=== PATIENT | male | born 1955 ===

== ENCOUNTER 2024-09-29 09:25 | Outpatient (AMB) | payer MEDICARE, MEDICAID, SELFPAY ==
--- NOTE | 2024-09-29 09:35 | A.OFFVIS_ITS ---
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 The patient describes his pain as sharp in nature. Most of the pain is along the medial aspect of his knee. The patient's symptoms have gotten worse over the last year. He has failed the last 6 weeks of conservative treatment which have included Tylenol, anti-inflammatory medicines, a home exercise program and physical therapy exercises. Supervisor [employer] Required: Yes Supervisor [employer] Name: [id number]- Dewayne Long Allergies No Known Allergies Allergy (Verified 09/29/24 09:42) Medication List - Last Reconciled 09/29/24 by Kayden Billy MD acetaminophen ER 650 mg PO alcohol swabs (Alcohol Prep Pads) pad topical QID atorvastatin 40 mg PO QAM blood sugar diagnostic (FreeStyle Lite Strips) As directed lancets (TRUEplus Lancets) As directed lisinopril 5 mg PO QAM Physical Exam Const Other: Well-nourished well-developed very friendly male awake alert and oriented x3 in no acute distress Extrem Other: Bilateral lower extremity examination shows good capillary refill, no skin lesions noted, normal sensation light touch Left knee examination shows a minimal effusion, mild crepitus with range of cruzito on, tenderness along his medial joint line, positive Johann's test, no instability Results Reviewed Results Reviewed: Standing full weight-bearing x-rays of the patient's left knee shows mild diffuse joint space narrowing, no acute bony abnormalities Assessment & Plan Assessment & Plan (1) Tear of medial meniscus of left knee: Code(s): S83.242A - Other tear of medial meniscus, current injury, left knee, initial en counter Category: Medical Plan Mr. Wilkinson presents with progressively worsening left knee pain and mechanical symptoms most likely due to a medial meniscus tear. Thus, I will send the patient for an MRI of his left knee for further evaluation. I will see him back once the MRI is completed to discuss the findings and treatment options. Feel free to call me at any time should questions regarding his orthopedic management arise. Thank you very much for asking me to see this very friendly gentleman. I spent 22 minutes in reviewing the patient's records and imaging studies, seeing the patient and documenting in the medical record. Orders: Orders XR knee LT 3V Today M25.562 - Pain in left knee MR knee LT wo con 09/30/24 S83.242A - Other tear of medial meniscus, current injury, left knee, initial encounter Coding Level of Care Code New Pt Level 3 (98659) Complex EM visit Add On G2211 Diagnoses Tear of medial meniscus of left knee S83.242A
--- OUTSIDE RECORDS SUMMARY | 2024-09-29 09:57 | XMS_ITS | Referral Summary ---
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 In Vitro USE 1 STRIP TWICE A DAY DX CODE E11.9 100 strip 3 8 Active FREESTYLE LITE METER meterIndications:Ot her specified diabetes mellitus without complication, without long-term current use of insulin (HCC) Use meter to check sugar BID Dx code E11.9 1 each 8 Active methylPREDNISolone (MEDROL) 4 mg tablet Take 1 tablet (4 mg total) by mouth once a day. 21 tablet 3 Active lisinopriL (PRINIVIL,ZESTRIL) 2.5 mg tabletIndications:H ypertension, unspecified type TAKE 1 TABLET BY MOUTH EVERY DAY 90 tablet 3 3 Active atorvastatin (LIPITOR) 40 mg tabletIndications:H yperlipidemia, unspecified hyperlipidemia type Take 1 tablet (40 mg total) by mouth once a day. 90 tablet 3 3 Active mirtazapine (REMERON) 30 mg tabletIndications:D epression, unspecified depression type Take 1 tablet bid 180 tablet 3 3 Active metFORMIN (GLUCOPHAGE) 500 mg tabletIndications:P olyarthritis Take 1 tablet (500 mg total) by mouth once a day. 90 tablet 1 3 Active Active Problems Problem Noted Date Diagnosed Date Hyperplastic polyp of intestine 01/02/2018 Overview (01/02/2018): Added automatically from request for surgery [id number] Type 2 diabetes mellitus wit hout complication, without long-term current use of insulin 09/19/2017 Male erectile disorder 04/08/2011 Hyperlipidemia 04/08/2011 Resolved Problems Problem Noted Date Diagnosed Date Resolved Date Acute pain of both shoulders 12/29/2017 09/24/2018 Anal polyp 10/10/2017 09/24/2018 Overview (10/10/2017): Added automatically from request for surgery [id number] Fatigue 11/27/2016 09/19/2017 Derangement of medial meniscus 12/22/2015 03/21/2017 Pain in knee 12/12/2015 03/21/2017 Sciatica 12/06/2015 03/21/2017 Diabetes mellitus 12/14/2014 09/19/2017 Nonspecific abnormal finding 06/09/2013 09/19/2017 Immunizations Immunization Administration Dates Next Due Influenza, Injectable, Quadr ivalent, Contains Preservative 12/23/2017 Pneumococcal Polysaccharide Vaccine, 23 Valent 0 06/03/2013 Tetanus Toxoid, Reduced Diph theria Toxoid, and Acellular Pertussis Vaccine, Adsorbed 06/03/2013 Social History Tobacco Use Types Packs/Day Years Used Date Smoking Tobacco: Some Days Cigarettes Smokeless Tobacco: Never Tobacco Cessation:Ready to Q uit: Yes; Counseling Given: Yes Comments:would be interested in using the patch Alcohol Use Standard Drinks/Week Comments No 0 (1 standard drink = 0.6 oz pur e alcohol) Transportation Answer Date Recorded Please alban the areas for ich the patient would like information or assistance: None Apply 11/14/2022 Lack of Transportation (Medical) Not on file 11/14/2022 Housing Stability Answer Date Recorded Please alban the areas for ich the patient would like information or assistance: None Apply 11/14/2022 Unable to Pay for Housing in the Last Year Not o n file 11/14/2022 Last EPDS Total Score Not on file 11/14/2022 Unstable Housing in the Last Year Not on file 11/14/2022 Sex and Gender Information Value Date Recorded Sex Assigned at Not on file Legal Sex Male 1:24 AM EDT Gender Identity Not on file Sexual Orientation Not on file Occupation Industry Job Start Date Job End Date not working Not on file Not on file Not on file Last Filed Vital Signs Vital Sign Reading Time Taken Comments Blood Pressure 110/70 11/14/2022 11:51 AM EDT Pulse 78 11/14/2022 11:51 AM EDT Temperature 36.8 C (98.3 F) 11/14/2022 11:51 AM EDT Respiratory Rate 14 04/08/2018 2:01 PM EST Oxygen Saturation 97% 04/08/2018 2:01 PM EST Inhaled Oxygen Concentration - - Weight 57.6 kg (127 lb) 11/14/2022 11:51 AM EDT Height 156 cm (5' 1.42 ) 01/26/2019 8:54 AM EST Body Mass Index 23.67 01/26/2019 8:54 AM EST Plan of Treatment Not on file Procedures * Due to [place] [employer] law, this organization might not be sharing negative HIV tests. Procedure Name Priority Date/Time Associated Diagnosis Comments HEMOGLOBIN A1C Routine 11/14/2022 12:15 PM EDT Diabetes mellitus without complication BASIC METABOLIC PANEL Routine 02/29/2020 9:14 AM EST Combined hyperlipidemia COLONOSCOPY 04/08/2018 MICROALBUMIN, RANDOM URINE WITH CREATININE Routine 06/20/2017 12:00 AM EDT Type 2 diabetes mellitus without complication, without long-term current use of insulin HM DIABETES EYE EXAM Routine 06/05/2016 8:06 AM EDT from Last 3 Months or Most Recently Relevant to Health Maintenance Results * Due to [place] [employer] law, this organization might not be sharing negative HIV tests. * (ABNORMAL) Hemoglobin A1c (11/14/2022 12:15 PM EDT) Hemoglobin A1C 10.4(H) <5.7 % of total Hgb 11/14/2022 8:16 PM EDT [facility] Comment: For someone without known diabetes, a hemoglobin A1c value of 6.5% or greater indicates that they may have diabetes and this should be confirmed with a follow-up test. For someone with known diabetes, a value <7% indicates that their diabetes is well controlled and a value greater than or equal to 7% indicates suboptimal control. A1c targets should be individualized based on duration of diabetes, age, comorbid conditions, and other considerations. Currently, no consensus exists regarding use of hemoglobin A1c for diagnosis of diabetes for children. eAG (MG/DL) 252 mg/dL 11/14/2022 8:16 PM EDT [facility] eAG (MMOL/L) 13.9 mmol/L 11/14/2022 8:16 PM EDT [facility] Blood Structure of peripheral vein / Unknown 11/14/2022 12:15 PM EDT 11/14/2022 6:29 PM EDT us Albino Hernandez MD LAB BLOOD ORDERABLES Final Resul t [facility] [address] [facility] [address], [place] [address], [employer] [facility] [address] [place] [address] * (ABNORMAL) Basic Metabolic Panel (02/29/2020 9:14 AM EST) Glucose 191(H) 65 - 99 mg/dL 02/29/2020 5:29 PM EST [facility] Comment: Fasting reference interval For someone without known diabetes, a glucose value >125 mg/dL indicates that they may have diabetes and this should be confirmed with a follow-up test. BUN 22 7 - 25 mg/dL 02/29/2020 5:29 PM EST [facility] Creatinine 0.93 0.70 - 1.25 mg/dL 02/29/2020 5:29 PM EST [facility] Comment: For patients >49 years of age, the reference limit for Creatinine is approximately 13% higher for people identified as -Irish. eGFR Non- 88 > OR = 60 mL/min/1 .73m2 02/29/2020 5:29 PM EST [facility] eGFR 102 > OR = 60 mL/min/1 .73m2 02/29/2020 5:29 PM EST [facility] Bun/Creatinine Ratio NOT APPLICABLE (calc) 02/29/2020 5:29 PM EST [facility] Sodium 139 135 - 146 mmol/L 02/29/2020 5:29 PM EST [facility] Potassium 4.4 3.5 - 5.3 mmol/L 02/29/2020 5:29 PM EST [facility] Chloride 101 98 - 110 mmol/L 02/29/2020 5:29 PM EST [facility] Carbon Dioxide 26 20 - 32 mmol/L 02/29/2020 5:29 PM EST [facility] Calcium 9.7 8.6 - 10.3 mg/dL 02/29/2020 5:29 PM EST [employer] [facility] Blood Structure of peripheral vein / Unknown 02/29/2020 9:14 AM EST 02/29/2020 4:14 PM EST Narrative [facility] - 02/29/2020 6:20 PM EST FASTING:YES Sandi Arias SKI PATROL DIRECTOR LAB BLOOD ORDERABLES Final Result [facility] [address] [facility] [address], [place] [address], [place] [phone] [facility] [address] [place] [address] * COLONOSCOPY (04/08/2018) Narrative Procedure Note Mayito Mccall MD - 04/08/2018 12:49 PM EST Gastroenterology Patient Name: Timo Wilkinson Procedure Date: 04/08/2018 12:49 PM Date of : 1955 Admit Type: Outpatient Age: 62 Room: Room 1 Gender: Male Note Status: Finalized Attending MD: Mayito Mccall MD Procedure: Colonoscopy Indications: High risk colon cancer surveillance: Personal history of colonicpolyps Providers: Mayito Mccall MD (Doctor) Referring MD: Halima Arias NP (Referring MD) Requesting Provider: Medicines: Monitored Anesthesia Care Complications: No immediate complications. Estimated Blood Loss: Estimated blood loss: none. Procedure: After I obtained informed consent, the scope was passed under direct vision. Throughout the procedure, the patient's blood pressure, pulse, and oxygen saturations were monitored continuously. The [id number] OLYMPUS [id number] was introduced through the anus and advanced to the cecum, identified by appendiceal orifice andileocecal valve. The colonoscopy was performed withoutdifficulty. The patient tolerated the procedure well. The qualityof the bowel preparation was fair. The bowel preparationused was [employer]te. Findings: The perianal and digital rectal examinations were normal. Multiple small and large-mouthed diverticula were found in the entire colon. A diminutive polyp was found in the cecum. The polyp was sessile. The polyp was removed with a cold biopsy forceps. Resection and retrieval were complete. Internal hemorrhoids were found during retroflexion. The hemorrhoids were medium-sized. Impression: - Preparation of the colon was fair. - Diverticulosis in the entire examined colon. - One diminutive polyp in the cecum, removed with acold biopsy forceps. Resected and retrieved. - Internal hemorrhoids. Recommendation: - Discharge patient to home (ambulatory). - Await pathology results. - A letter will be mailed to you with your pathology results. If you do not hear from us in 2 weeks, please call our office for results. - Repeat colonoscopy in 3 years because the bowel preparation was suboptimal and for surveillance. Mayito Mccall MD 04/08/2018 1:15:54 PM This report has been signed electronically. Number of Addenda: 0 Note Initiated On: 04/08/2018 12:49 PM Mayito Mccall MD [employer]OVATION PROCEDURES Final Result * Microalbumin/Creatinine Urine Ratio, Random (06/20/2017 12:00 AM EDT) Creatinine, Random Urine 234 20 - 370 mg/dL 06/24/2017 4:47 PM EDT [employer] [facility] Microalbumin 0.4 mg/dL 06/24/2017 4:47 PM EDT [employer] [facility] Comment: Reference Range Not established Microalbumin/Crea tinine Ratio, Random Urine 2 <30 mcg/mg creat 06/24/2017 4:47 PM EDT [employer] [facility] Comment: The ADA defines abnormalities in albumin excretion as follows: Category Result (mcg/mg creatinine) Normal <30 Microalbuminuria 30-299 Clinical albuminuria > OR = 300 The ADA recommends that at least two of three specimens collected within a 3-6 month period be abnormal before considering a patient to be within a diagnostic category. Urine specimen (specimen) Voided urine specimen / Unknown 06/20/2017 06/24/2017 8:21 AM EDT Sandi Arias SKI PATROL DIRECTOR LAB URINE ORDERABLES Final Result [facility] [address] [facility] [address], [place] [address], [place] [phone] [facility] [address] [facility] [address], [place] [address], [place] [phone] * DIABETES EYE EXAM (06/05/2016 8:06 AM EDT) Eye Exam [id number] [facility] MANUAL RESULTS 06/05/2016 8:06 AM EDT us Historical Conversion Provider HEALTH MAINTENANC E Final Result [facility] MANUAL RESULTS from Last 3 Months or Most Recently Relevant to Health Maintenance Insurance [facility]IC[facility] Care Teams Elastic Yarn Twister Helper Relationship Specialty Start Date End Date Albino Hernandez MD [address] [place] [id number] PCP - General Family Medicine 11/14/22
--- OUTSIDE RECORDS SUMMARY | 2024-09-29 09:57 | XMS_ITS | Clinical Summary ---
Author Organization [employer] Address [address] [facility] [address] [place] [address] Care Team Providers Care Board Lining Machine Operator Name Role Phone Mami Jacob AIMEE Primary Care Provider [phone] Allergies No known active allergies Medications atorvastatin (Lipitor) 40 MG tabletIndications :Hyperlipidemia, unspecified hyperlipidemia type Take 1 tablet (40 mg) by mouth Once per day. 90 tablet 2 12/17/19 24 Active Blood Pressure Monitoring (Blood Pressure Cuff) miscIndications:E levated blood pressure reading 1 kit if needed each day (blood pressure). 1 each 12/17/19 24 Active Blood Glucose Monitoring Suppl (FreeStyle [place] Lite) w/Device kitIndications:Ty pe 2 diabetes mellitus without complication, without long-term current use of insulin ([facility]) Use to test blood sugar bid dx dm 1 kit 12/17/19 24 Active glucose blood test stripIndications: Type 2 diabetes mellitus without complication, without long-term current use of insulin ([facility]) Use daily as needed for blood sugar, freestyle lite 100 each 1 12/19/19 24 025 Active nicotine (Nicoderm, Step 3) 7 MG/24HR patchIndications: Tobacco use disorder APPLY 1 PATCH TOPICALLY TO THE SKIN IN THE MORNING *DO NOT SMOKE WHILE USING PATCH* 30 patch 04/09/19 25 Active traZODone (Desyrel) 50 MG tablet Take 1 tablet (50 mg) by mouth at bedtime. 30 tablet 3 04/19/19 25 Active Alcohol Sheets (Alcoh-Wipe) sheetIndications: Type 2 diabetes mellitus without complication, without long-term current use of insulin ([facility]) Test daily before all meals/snacks and once before bedtime. 1 each 07/06/19 25 Active Lancets miscIndications:T ype 2 diabetes mellitus without complication, without long-term current use of insulin ([facility]) 1 Lancet if needed each day (as needed). 90 each 07/06/19 25 Active nicotine polacrilex (Commit) 2 MG lozenge Dissolve 1 lozenge (2 mg) in the mouth if needed for smoking cessation (every 1-2 hours). 100 lozenge 2 07/24/19 25 Active diclofenac sodium 3 % gelIndications:Ch ronic pain of left knee Apply topically if needed in the morning and at bedtime (knee pain). 100 g 1 08/24/19 25 Active lisinopril 2.5 MG tabletIndications :Primary hypertension Take 1 tablet (2.5 mg) by mouth Once per day. 30 tablet 11 08/24/19 25 026 Active metFORMIN XR (Glucophage-XR) 500 MG 24 hr tabletIndications :Type 2 diabetes mellitus with other specified complication, without long-term current use of insulin ([facility]) Take 1 tablet (500 mg) by mouth 2 times daily. Do not crush, chew, or split. 180 tablet 3 08/24/19 25 026 Active acetaminophen (Tylenol 8 Hour) 650 MG ER tabletIndications :Pain in left knee TAKE 1 TABLET BY MOUTH TWICE DAILY IN THE MORNING AND AT BEDTIME NEEDED FOR MILD PAIN. DO NOT BREAK, CRUSH, DISSOLVE OR CHEW. 60 tablet 2 09/16/19 25 Active acetaminophen (Tylenol 8 Hour) 650 MG ER tablet Take 650 mg by mouth if needed in the morning and at bedtime for mild pain. Do not crush, chew, or split. 025 Discontinued Active Problems Problem Noted Date Diagnosed Date Type 2 diabetes mellitus, wi thout long-term current use of insulin 07/19/2024 Assessment & Plan (07/19/2024 8:25 PM EDT): Difficulty managing chronic conditions in part due to low literacy Referral for med box Pharmacy team into schedule with patient Chronic left shoulder pain 07/19/2024 Assessment & Plan (07/19/2024 8:24 PM EDT): Referral to ortho, Pt 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 management for RAIL CAR MECHANIC and care coordination Other insomnia 04/19/2024 Assessment & Plan (04/19/2024 9:53 AM EST): Pt reports previously was on a nightly pill Trazodone rx sent Low-level of literacy 12/17/2023 Assessment & Plan (12/17/2023 1:29 PM EDT): RAIL CAR MECHANIC sheet given to patient, Referral to case management for ongoing support Primary hypertension 12/17/2023 Assessment & Plan (04/19/2024 9:53 AM EST): Above goal 2/3 visits Increase lisinopril to 5 mg Continue home monitoring goals reviewed Assessment & Plan (03/17/2024 12:10 PM EST): Lisinopril 2.5 mg Assessment & Plan (12/17/2023 1:27 PM EDT): Above goal today, resume lisinopril 2.5 Bp cuff ordered for home Bp measurement sheet, rtc in 2 months Tobacco use disorder 12/17/2023 Assessment & Plan (03/17/2024 12:09 PM EST): Pt motivated to quit, trial low dose patch Assessment & Plan (12/17/2023 1:29 PM EDT): Pt not motivated to quit, consents to low dose CT screening ordered Healthcare maintenance 12/17/2023 Chronic pain of left knee 12/17/2023 Assessment & Plan (07/19/2024 8:24 PM EDT): Referral to ortho Assessment & Plan (04/19/2024 9:54 AM EST): Prn acetaminophen prescribed, If ineffective referral to ortho Assessment & Plan (03/17/2024 12:09 PM EST): Rx for lidocaine patch which pt finds beneficial Assessment & Plan (12/17/2023 1:27 PM EDT): Will address at next visit declines physical therapy today and referral to ortho 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 09/21/2023 Mixed hyperlipidemia 09/21/2023 Hyperplastic polyp of intestine 01/02/2018 Overview (12/16/2023): Added automatically from request for surgery [id number] Type 2 diabetes mellitus wit hout complication, without long-term current use of insulin 09/19/2017 Assessment & Plan (04/19/2024 9:54 AM EST): Stable, now has home meter Assessment & Plan (03/17/2024 12:07 PM EST): Resume metformin which was likely the source of gi upset, pt plans to restart each med one by one and Return to clinic in 1 henrry Assessment & Plan (12/17/2023 1:30 PM EDT): Resume metformin 500 mg, Return to clinic in 2 months Home glucometer ordered Male erectile disorder (CODE) 04/08/2011 Hyperlipidemia 04/08/2011 Assessment & Plan (03/17/2024 12:10 PM EST): Resume statin Assessment & Plan (12/17/2023 1:29 PM EDT): Resume atorvastatin 40 mg Labs as ordered below Encounters Date Type Department Care Team Description 09/15/2024 Refill [facility] [address] [place] [address] Mami Jacob NP Pain in left knee 08/23/2024 Orders Only [facility] [address] [facility] [place] [address] Mami Jacob NP Type 2 diabetes mellitus with other specified complication, without long-term current use of insulin ([facility]) (Primary Dx); Primary hypertension; Chronic pain of left knee 08/19/2024 Travel 08/05/2024 9:30 AM EDT Clinical Support [facility] [place] [address] Davina Kaur PharmD Tobacco use disorder (Primary Dx) 07/23/2024 Refill [facility] [address] [place] [address] Davina Kaur PharmD 07/22/2024 Travel 07/19/2024 10:15 AM EDT Office [address] [facility] [address] [place] [address] Mmai Jacob NP Type 2 diabetes mellitus with other specified complication, without long-term current use of insulin (CMS/HCC) (Primary Dx); Chronic pain of left knee; Chronic left shoulder pain; Low-level of literacy 07/19/2024 Travel 07/16/2024 Telephone [facility] [address] [place] [id number] Amrit Cuevas MA chartprep 07/06/[address] [address] Mami Jacob NP Med Refill (Patient requesting refill for needles for glucose machine and lancets ) 07/06/[address] [address] Gaby Gallegos RN 07/02/[address] [address] Mami Jacob NP Type 2 diabetes mellitus without complication, without long-term current use of insulin (CMS/HCC) from Last 3 Months Immunizations Immunization Administration Dates Next Due Influenza injectable quadriv alent IIV4 with preservative 12/23/2017 Influenza, High Dose Seasonal, Preservative Free 12/17/2023 Pneumococcal Polysaccharide PPSV23 06/03/2013 Tdap 06/03/2013 Social History Tobacco Use Types Packs/Day Years Used Date Smoking Tobacco: Every Day Cigarettes Smokeless Tobacco: Never Tobacco Cessation:Counseling Given: Not Answered Alcohol Use Standard Drinks/Week Comments Never 0 (1 standard drink = 0.6 oz pur e alcohol) Depression Answer Date Recorded Patient Health Questionnaire-9 Score 0 12/17/2023 Patient Health Questionnaire-9 Score 0 12/17/2023 Last PHQ-9: Questionnaire Data Not on file 1 Housing Stability Answer Date Recorded What is your housing situation today? I do not have housing (Staying with others, in a hotel, in a senior living, living outside on the street, on a beach, in a car, or in a park 12/10/[address] you li ve. Do you have problems with any of the following? None of the above 12/10/2023 Food Insecurity Answer Date Recorded Within the past 12 months, y ou worried that your food would run out before you got money to buy more: Often true 12/10/2023 Within the past 12 months,th e food you bought just didn't last and you didn't have enough money to get more: Often true 04/2023 Transportation Answer Date Recorded In the past 12 months, has l ack of transportation kept you from medical appts, meetings, work or from getting things needed for daily living? Yes, it has kept me from medical appointments or getting medications. 12/10/2023 Utilities Answer Date Recorded In the past 12 months, has t he electric, gas, oil or water company threatened to shut off services in your home? No 12/10/2023 Depression Answer Date Recorded Patient Health Questionnaire-2 Score 0 12/17/2023 Internet Access Answer Date Recorded Internet Access Q1 Yes 12/10/2023 Internet Access Q2 Not on file 12/10/2023 Sex and Gender Information Value Date Recorded Sex Assigned at Male 08/25/2023 10:52 AM EDT Legal Sex Male 7:05 PM EDT Gender Identity Male 06/20/2023 7:05 PM EDT Sexual Orientation Straight 06/20/2023 7: 05 PM EDT Last Filed Vital Signs Vital Sign Reading Time Taken Comments Blood Pressure 104/66 08/19/2024 10:28 AM EDT Pulse 72 08/19/2024 10:28 AM EDT Temperature 36.6 C (97.8 F) 07/19/2024 10:24 AM EDT Respiratory Rate 18 07/19/2024 10:24 AM EDT Oxygen Saturation 97% 07/19/2024 10:24 AM EDT Inhaled Oxygen Concentration - - Weight 55.8 kg (123 lb) 07/19/2024 10:24 AM EDT Height 157.5 cm (5' 2 ) 07/19/2024 10:24 AM EDT Body Mass Index 22.5 07/19/2024 10:24 AM EDT Plan of Treatment Upcoming Encounters Date Type Department Care Team (Late st Contact Info) Description 10/19/2024 11:30 AM EDT Office Visit [facility] [address] [place] [address] Mami Jacob, CHARGING PLUG PLACER [address] [place] [address] 10/28/2024 9:45 AM EDT Office Visit [facility] [address] [place] [address] Ariane Garza, OD [address] [place] [address] Health Maintenance Due Date Last Done Comments CT Colonography 1957 Colonoscopy 1957 Colorectal Cancer Screening 1957 FIT DNA/Cologuard 1957 FIT 1957 FOBT 1957 Lipid Panel 1957 Sigmoidoscopy 1957 Diabetes: Foot Exam 10/25/1967 Hepatitis C Screening 10/25/1975 Zoster Vaccines (1 of 2) 10/25/2007 Pneumococcal Vaccine: 50+ Years (2 of 2 - PCV) 06/03/2014 06/03/2013 Diabetes: Urine Protein Screening 06/20/2018 06/20/2017 Eye Exam 12/17/2018 12/17/2016 DTaP/Tdap/Td Vaccines (2 - Td or Tdap) 06/04/2023 06/03/2013 COVID-19 Vaccine ( season) 2023 Diabetes: Hemoglobin A1C 10/19/2024 025, 03/17/2024, 12/17/2023 Influenza Vaccine (#1) 2024 4, 11/16/2022, 10/16/2019, Additional history exists SDOH Screening 12/09/2024 12/10/2023 Alcohol/Substance Use Screening 12/16/2024 12/17/2023 Depression Screening 12/16/2024 12/17/2023, 12/17/19 24 Tobacco Screening 04/19/2025 04/19/2024 RSV Patients and Patients Aged 60 years or older (1 - 1-dose 75+ series) 2032 HIB Vaccines Aged Out No longer eligi ble based on patient's age to complete this topic HPV Vaccines Aged Out No longer eligi ble based on patient's age to complete this topic Hepatitis A Vaccines Aged Out No long er eligible based on patient's age to complete this topic Hepatitis B Vaccines Aged Out No long er eligible based on patient's age to complete this topic IPV Vaccines Aged Out No longer eligi ble based on patient's age to complete this topic Meningococcal B Vaccine Aged Out No l onger eligible based on patient's age to complete this topic Meningococcal Vaccine Aged Out No ketty milana eligible based on patient's age to complete this topic RSV under 20 months Aged Out No longe r eligible based on patient's age to complete this topic Rotavirus Vaccines Aged Out No longer eligible based on patient's age to complete this topic Procedures Procedure Name Priority Date/Time Associated Diagnosis Comments POCT GLYCATED HEMOGLOBIN, TOTAL Routine 07/19/2024 10:27 AM EDT Type 2 diabetes mellitus with other specified complication, without long-term current use of insulin ([facility]) POCT GLUCOSE Routine 07/19/2024 10:26 AM EDT Type 2 diabetes mellitus with other specified complication, without long-term current use of insulin ([facility]) from Last 3 Months Results * (ABNORMAL) POCT HGB A1C (07/19/2024 10:27 AM EDT) Pathologist [facility] Hemoglobin A1C 7.8(A) 4.0 - 6.0 % QC Media Lot # [id number] Lot# Expiration Date Blood 07/19/2024 10:2 7 AM EDT Mami Jacob NP POINT OF CARE TEST ENTER/EDIT OR DERABLES Final Result * POCT Glucose (07/19/2024 10:26 AM EDT) Pathologist [facility] Glucose Blood, POC 145 60 - 200 mg/dL QC Media Lot # [id number] Lot# Expiration Date [id number] Blood Capillary blood specimen / Unknown 07/19/2024 10:26 AM EDT Result [facility] Mami Jacob CHARGING PLUG PLACER POINT OF CARE TEST ENTER/EDIT OR DERABLES Final Result from Last 3 Months Insurance [facility] STANDARD [place] [address] [place] [address] [place] [id number] Care Teams Board Lining Machine Operator Relationship Specialty Start Date End Date Mami Jacob NP [address] [place] [phone] PCP - General Family Medicine 12/17/23
== END 2024-09-29 09:59 | disposition home or self-care (01) ==
LOC: HO.HOS 09:25
PROVIDERS: Visit Provider Orthopaedic Surgery
DX: S83.242A Other tear of medial meniscus, current injury, left knee, initial encounter (principal)
CPT/HCPCS: 99203; G2211

== ENCOUNTER → 2024-09-29 09:27 | Outpatient (BNV) | payer MEDICARE, MEDICAID, SELFPAY | PROVIDERS: Visit Provider Radiology Diagnostic Radiology | DX: M25.562 Pain in left knee (principal) | CPT/HCPCS: 73562 ==

== ENCOUNTER 2024-09-29 10:25 | Outpatient (REF) | payer MEDICARE, MEDICAID, SELFPAY ==
--- OUTSIDE RECORDS SUMMARY | 2005-05-12 20:00 | XMS_ITS | Continuity of Care Document ---
Author Organization gisella [facility] Address [address] [address],[address] [place] [address] Phone Care Team Providers Care Coordinate Measuring Machine Programmer Name Role Phone Z-Converted, Provider Unavailable Unavailabl [...] Date Provider Providers Copied on Encounter gisella [facility], [address] [place] [address],[address], [id number], tel:[phone] Converted Locations No Information 6 Z-Convert ed Provider. . Antonino [facility], [address] [place] [address],[address] [address], [place], [place], [id number], tel:[phone] Converted Locations No Information 6 Z-Convert ed Provider. . [facility], [address] [place] [address],[facility] [address], [place], [place], [id number], tel:[phone] [facility] hypercholestero lemiaDysthymic disorder 6 Z-Convert ed Provider. . Family History Family Member Type Diagnosis Age At Onset No Information Payers Payer name Insurance type Covered democrat ID Authoriza tion(s) No Information Social History [...]
--- NOTE | ~2024-09-29 | XR_ITS ---
EXAMINATION: XR KNEE, LEFT CLINICAL INFORMATION: M25.562 - Pain in left knee COMPARISON: None available. TECHNIQUE: Three views of the left knee. FINDINGS: No fracture, dislocation, or suspicious bone lesion. Normal bone mineralization. Normal alignment. Joint spaces are preserved. No significant arthropathy. No significant joint effusion. Soft tissues appear normal. XR/XR knee LT 3V IMPRESSION: Normal left knee. Electronically signed by: Jeremiah Nick MD 09/29/2024 09:56 AM EDT
--- OUTSIDE RECORDS SUMMARY | 2024-09-30 11:18 | XMS_ITS | Referral Summary ---
Author Organization [facility] Address [address] [place] [address] Care Team Providers Care Machine Ii Engraver Name Role Phone Albino Hernandez MD Primary Care Provider [phone] Allergies No known active allergies Medications Freestyle [...] (01/02/2018): Added automatically from request for surgery [id number] Type 2 diabetes mellitus wit hout complication, without long-term current use of insulin 09/19/2017 Male erectile disorder 04/08/2011 Hyperlipidemia 04/08/2011 Resolved Problems Problem Noted Date Diagnosed Date Resolved Date Acute pain of both shoulders 12/29/2017 09/24/2018 Anal polyp 10/10/2017 09/24/2018 Overview (10/10/2017): Added automatically from request for surgery [id number] Fatigue 11/27/2016 09/19/2017 Derangement of medial meniscus [...] Not on file Procedures * Due to [place] [employer] law, this organization might not be sharing [...] to Health Maintenance Results * Due to [place] [employer] law, this organization might not be sharing negative HIV tests. * (ABNORMAL) Hemoglobin A1c (11/14/2022 12:15 PM EDT) Hemoglobin A1C 10.4(H) <5.7 % of total Hgb 11/14/2022 8:16 PM EDT [facility] Comment: For someone without known diabetes, a [...] (MG/DL) 252 mg/dL 11/14/2022 8:16 PM EDT [facility] eAG (MMOL/L) 13.9 mmol/L 11/14/2022 8:16 PM EDT [facility] Blood Structure of peripheral vein / Unknown 11/14/2022 12:15 PM EDT 11/14/2022 6:29 PM EDT us Albino Hernandez MD LAB BLOOD ORDERABLES Final Resul t [facility] [address] [facility] 3rd Floor, [place] [address], [employer] [facility] [address] [place] [address] * (ABNORMAL) Basic Metabolic Panel (02/29/2020 9:14 AM EST) Glucose 191(H) 65 - 99 mg/dL 02/29/2020 5:29 PM EST [facility] Comment: Fasting reference interval For someone without known diabetes, a glucose value >125 mg/dL indicates that they may have diabetes and this should be confirmed with a follow-up test. BUN 22 7 - 25 mg/dL 02/29/2020 5:29 PM EST [facility] Creatinine 0.93 0.70 - 1.25 mg/dL 02/29/2020 5:29 PM EST [facility] Comment: For patients >49 years of age, the reference limit for Creatinine is approximately 13% higher for people identified as -Liberian. eGFR Non- 88 > OR = 60 mL/min/1 .73m2 02/29/2020 5:29 PM EST [facility] eGFR 102 > OR = 60 mL/min/1 .73m2 02/29/2020 5:29 PM EST [facility] [employer] [facility] Bun/Creatinine Ratio NOT APPLICABLE (calc) 02/29/2020 5:29 PM EST [facility] Sodium 139 135 - 146 mmol/L 02/29/2020 5:29 PM EST [facility] Potassium 4.4 3.5 - 5.3 mmol/L 02/29/2020 5:29 PM EST [facility] [employer] [facility] Chloride 101 98 - 110 mmol/L 02/29/2020 5:29 PM EST [facility] [employer] [facility] Carbon Dioxide 26 20 - 32 mmol/L 02/29/2020 5:29 PM EST [facility] [employer] [facility] Calcium 9.7 8.6 - 10.3 mg/dL 02/29/2020 5:29 PM EST [employer] [facility] Blood Structure of peripheral vein / Unknown 02/29/2020 9:14 AM EST 02/29/2020 4:14 PM EST Narrative [facility] - 02/29/2020 6:20 PM EST FASTING:YES Sadni Arias [employer]VERTISING [employer] LAB BLOOD ORDERABLES Final Result [facility] [address] [facility] 3rd [address], [place] [address], [place] [phone] [facility] [address] [place] [address] * COLONOSCOPY (04/08/2018) Narrative Procedure Note Mayito [...] saturations were monitored continuously. The [id number] [id number] was introduced through the anus and advanced [...] - 370 mg/dL 06/24/2017 4:[address] [employer] [facility] Microalbumin 0.4 mg/dL 06/24/2017 4:47 [address] [employer] [facility] Comment: Reference Range Not established Microalbumin/Crea tinine Ratio, Random Urine 2 <30 mcg/mg creat 06/24/2017 4:47 [address] [employer] [facility] Comment: The ADA defines abnormalities in albumin [...] 06/20/2017 06/24/2017 8:21 AM EDT Sandi Arias [employer]VERT[employer] LAB URINE ORDERABLES Final Result [facility] [address] [facility] 3[address], [place] [address], [place] [phone] [facility] [address] [facility] 3[address], [place] [address], [place] [phone] * DIABETES EYE EXAM (06/05/2016 8:06 AM EDT) Eye Exam [id number] [facility] MANUAL RESULTS 06/05/2016 8:06 AM EDT us Historical Conversion Provider HEALTH MAINTENANC E Final Result [facility] MANUAL RESULTS from Last 3 Months or Most Recently Relevant to Health Maintenance Insurance MEDICARE [facility] Care Teams Machine Ii Engraver Relationship Specialty Start Date End Date Albino Hernandez MD [address] [place] [id number] PCP - General Family Medicine 11/14/22
--- OUTSIDE RECORDS SUMMARY | 2024-09-30 11:18 | XMS_ITS | Clinical Summary ---
Author Organization [employer] Address [address] [facility] [address] [place] [address] Care Team Providers Care Unattended Ground Sensor Specialist Name Role Phone Mami Jacob AIMEE Primary Care Provider [phone] Allergies No known active allergies Medications atorvastatin (Lipitor) 40 MG tabletIndications :Hyperlipidemia, unspecified hyperlipidemia type Take 1 tablet (40 mg) by mouth Once per day. 90 tablet 2 12/17/19 24 Active Blood Pressure Monitoring (Blood Pressure Cuff) miscIndications:E levated blood pressure reading 1 kit if needed each day (blood pressure). 1 each 12/17/19 24 Active Blood Glucose Monitoring Suppl (FreeStyle [place] Lite) w/Device kitIndications:Ty pe 2 diabetes mellitus without complication, without long-term current use of insulin ([facility]) Use to test blood sugar bid dx dm 1 kit 12/17/19 24 Active glucose blood test stripIndications: Type 2 diabetes mellitus without complication, without long-term current use of insulin ([facility]) Use daily as needed for blood sugar, [...] complication, without long-term current use of insulin ([facility]) Test daily before all meals/snacks and once before bedtime. 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 ASSEMBLER and care coordination Other insomnia 04/19/2024 Assessment & Plan (04/19/2024 9:53 AM EST): Pt reports previously was on a nightly pill Trazodone rx sent Low-level of literacy 12/17/2023 Assessment & Plan (12/17/2023 1:29 PM EDT): RAIL ASSEMBLER sheet given to patient, Referral to case [...] (12/16/2023): Added automatically from request for surgery [id number] Type 2 diabetes mellitus wit hout complication, [...] Type Department Care Team Description 09/15/2024 Refill [facility] [address] [place] [address] Mami Jacob NP Pain in left knee 08/23/2024 Orders Only [facility] [address] [facility] [place] [address] Mami Jacob NP Type 2 diabetes mellitus with other specified complication, without long-term current use of insulin ([facility]) (Primary Dx); Primary hypertension; Chronic pain of left knee 08/19/2024 Travel 08/05/2024 9:30 AM EDT Clinical Support [facility] [place] [address] Davina Kaur PharmD Tobacco use disorder (Primary Dx) 07/23/2024 Refill [facility] [address] [place] [address] Davina Kaur PharmD 07/22/2024 Travel 07/19/2024 10:15 AM EDT Office Visit [facility] [address] [place] [address] Mami Jacob NP Type 2 diabetes mellitus with other specified complication, without long-term current use of insulin (CMS/HCC) (Primary Dx); Chronic pain of left knee; Chronic left shoulder pain; Low-level of literacy 07/19/2024 Travel 07/16/2024 Telephone [facility] [address] [place] [phone] Amrit Cuevas MA chartprep 07/06/[address] [address] Mami Jacob NP Med Refill (Patient requesting refill for needles for glucose machine and lancets ) 07/06/[address] [address] Gaby Gallegos RN 07/02/[address] [address] Mami Jacob NP Type 2 diabetes mellitus [...] with others, in a hotel, in a half-way, living outside on the street, on a [...] Description 10/19/2024 11:30 AM EDT Office Visit [facility] [address] [place] [address] Mami Jacob, DIRECTORY CARRIER [address] [place] [address] 10/28/2024 9:45 AM EDT Office Visit [facility] [address] [place] [address] Ariane Garza, OD [address] [place] [address] Health Maintenance Due Date Last Done Comments [...] complication, without long-term current use of insulin ([facility]) POCT GLUCOSE Routine 07/19/2024 10:26 AM EDT Type 2 diabetes mellitus with other specified complication, without long-term current use of insulin ([facility]) from Last 3 Months Results * (ABNORMAL) POCT HGB A1C (07/19/2024 10:27 AM EDT) Pathologist [facility] Hemoglobin A1C 7.8(A) 4.0 - 6.0 % QC Media Lot # [id number] Lot# Expiration Date Blood 07/19/2024 10:2 7 AM EDT Mami Jacob NP POINT OF CARE TEST ENTER/EDIT OR DERABLES Final Result * POCT Glucose (07/19/2024 10:26 AM EDT) Pathologist [facility] Glucose Blood, POC 145 60 - 200 mg/dL QC Media Lot # [id number] Lot# Expiration Date [id number] Blood Capillary blood specimen / Unknown 07/19/2024 10:26 AM EDT Result [facility] Mami Jacob DIRECTORY CARRIER POINT OF CARE TEST ENTER/EDIT OR DERABLES Final Result from Last 3 Months Insurance [facility] STAND[facility] [place] [address] [place] [phone] Care Teams Unattended Ground Sensor Specialist Relationship Specialty Start Date End Date Mami Jacob NP [address] [place] [phone] PCP - General Family Medicine 12/17/23
== END 2024-09-29 10:26 | disposition home or self-care (01) ==
LOC: HO.HOSX 10:25
PROVIDERS: Visit Provider Orthopaedic Surgery
DX: S83.242A Other tear of medial meniscus, current injury, left knee, initial encounter (principal); M23.8X2 Other internal derangements of left knee; M25.862 Other specified joint disorders, left knee; M25.462 Effusion, left knee; M25.562 Pain in left knee; Z79.899 Other long term (current) drug therapy
CPT/HCPCS: 73562; 99202

== ENCOUNTER 2024-10-06 07:58 | Outpatient (AMB) | payer MEDICARE, MEDICAID, SELFPAY ==
--- OUTSIDE RECORDS SUMMARY | 2024-10-06 08:01 | XMS_ITS | Referral Summary ---
Author Organization [facility] Address [address] [place] [address] Care Team Providers Care Cadastral Surveyor Name Role Phone Albino Hernandez MD Primary Care Provider Allergies No known active allergies Medications Freestyle [...] (01/02/2018): Added automatically from request for surgery [id number] Type 2 diabetes mellitus wit hout complication, without long-term current use of insulin 09/19/2017 Male erectile disorder 04/08/2011 Hyperlipidemia 04/08/2011 Resolved Problems Problem Noted Date Diagnosed Date Resolved Date Acute pain of both shoulders 12/29/2017 09/24/2018 Anal polyp 10/10/2017 09/24/2018 Overview (10/10/2017): Added automatically from request for surgery [id number] Fatigue 11/27/2016 09/19/2017 Derangement of medial meniscus [...] Not on file Procedures * Due to [employer] law, this organization might not be sharing [...] to Health Maintenance Results * Due to [employer] law, this organization might not be sharing negative HIV tests. * (ABNORMAL) Hemoglobin A1c (11/14/2022 12:15 PM EDT) Hemoglobin A1C 10.4(H) <5.7 % of total Hgb 11/14/2022 8:16 PM EDT [facility] Comment: For someone without known diabetes, a [...] (MG/DL) 252 mg/dL 11/14/2022 8:16 PM EDT [facility] eAG (MMOL/L) 13.9 mmol/L 11/14/2022 8:16 PM EDT [facility] Blood Structure of peripheral vein / Unknown 11/14/2022 12:15 PM EDT 11/14/2022 6:29 PM EDT us Albino Hernanedz MD LAB BLOOD ORDERABLES Final Resul t [facility] [address] [facility] 3rd [address], [place] [address], [employer] [facility] [address] [place] [address] * (ABNORMAL) Basic Metabolic Panel (02/29/2020 9:14 AM EST) Glucose 191(H) 65 - 99 mg/dL 02/29/2020 5:29 PM EST [facility] Comment: Fasting reference interval For someone without known diabetes, a glucose value >125 mg/dL indicates that they may have diabetes and this should be confirmed with a follow-up test. BUN 22 7 - 25 mg/dL 02/29/2020 5:29 PM EST [facility] Creatinine 0.93 0.70 - 1.25 mg/dL 02/29/2020 5:29 PM EST [facility] Comment: For patients >49 years of age, the reference limit for Creatinine is approximately 13% higher for people identified as -[place]. eGFR Non- 88 > OR = 60 mL/min/1 .73m2 02/29/2020 5:29 PM EST [facility] eGFR 102 > OR = 60 mL/min/1 .73m2 02/29/2020 5:29 PM EST [facility] Bun/Creatinine Ratio NOT APPLICABLE (calc) 02/29/2020 5:29 PM EST [facility] Sodium 139 135 - 146 mmol/L 02/29/2020 5:29 PM EST [facility] Potassium 4.4 3.5 - 5.3 mmol/L 02/29/2020 5:29 PM EST [facility] Chloride 101 98 - 110 mmol/L 02/29/2020 5:29 PM EST [facility] Carbon Dioxide 26 20 - 32 mmol/L 02/29/2020 5:29 PM EST [facility] Calcium 9.7 8.6 - 10.3 mg/dL 02/29/2020 5:29 PM EST [facility] Blood Structure of peripheral vein / Unknown 02/29/2020 9:14 AM EST 02/29/2020 4:14 PM EST Narrative [facility] - 02/29/2020 6:20 PM EST FASTING:YES Sandi Arias GROCERY DEPARTMENT MANAGER LAB BLOOD ORDERABLES Final Result [facility] [address] [facility] [address], [place] [address], [place] [phone] [facility] [address] [place] [address] * COLONOSCOPY (04/08/2018) Narrative Procedure Note Mayito [...] saturations were monitored continuously. The PCF-H190DL OLYMPUS [id number] was introduced through the anus and advanced [...] - 370 mg/dL 06/24/2017 4:47 PM EDT [employer] [facility] Microalbumin 0.4 mg/dL 06/24/2017 4:47 PM EDT [employer] [facility] Comment: Reference Range Not established Microalbumin/Crea tinine Ratio, Random Urine 2 <30 mcg/mg creat 06/24/2017 4:47 PM EDT [employer] [facility] Comment: The ADA defines abnormalities in albumin [...] 06/20/2017 06/24/2017 8:21 AM EDT Sandi Arias GROCERY DEPARTMENT MANAGER LAB URINE ORDERABLES Final Result [facility] [address] [facility] [address], [place] [address], [place] [phone] [facility] [address] [facility] [address], [place] [address], [place] [phone] * DIABETES EYE EXAM (06/05/2016 8:06 AM EDT) Eye Exam [id number] [facility] MANUAL RESULTS 06/05/2016 8:06 AM EDT us Historical Conversion Provider HEALTH MAINTENANC E Final Result [facility] MANUAL RESULTS from Last 3 Months or Most Recently Relevant to Health Maintenance Insurance MEDICARE [facility] Care Teams Cadastral Surveyor Relationship Specialty Start Date End Date Albino Hernandez MD [address] [place] [id number] PCP - General Family Medicine 11/14/22
--- NOTE | 2024-10-06 09:09 | A.OFFVIS_ITS ---
Intake Visit Reasons: New prob- Left shoulder pain Intake Note: Timo is a 68 year old left hand dominant male who presents with complaints of progressively worsening left shoulder pain and weakness. The patient states that he injured his shoulder 1 year ago when he fell off of a ladder and landed onto his left shoulder. He reports difficulty lifting his left hand above shoulder height. He has failed the last 6 weeks of conservative treatment which has included physical therapy exercises, a home exercise program, Tylenol and anti-inflammatory medicines. Neurological Surgery Teacher Required: Yes Neurological Surgery Teacher Services: Neurological Surgery Teacher Present Neurological Surgery Teacher Name: Basilio [id number] Allergies No Known Allergies Allergy (Verified 10/06/24 09:26) Medication List - Last Reconciled 10/06/24 by Kayden Billy MD acetaminophen ER 650 mg PO alcohol swabs (Alcohol Prep Pads) pad topical QID atorvastatin 40 mg PO QAM blood sugar diagnostic (FreeStyle Lite Strips) As directed blood-glucose meter (FreeStyle [place] Lite kit) As directed lancets ([employer] Lancets) As directed lisinopril 5 mg PO QAM metformin ER 500 mg PO QPM trazodone 50 mg PO BEDTIME Physical Exam Const Other: Well-nourished well-developed very friendly male awake alert and oriented x3 in no acute distress Extrem Other: Left shoulder examination shows decreased range of motion when compared to his right shoulder, 4+ out of 5 strength with supraspinatus testing, positive impingement signs, tenderness over his acromioclavicular joint, no instability Results Reviewed Results Reviewed: X-rays of the patient's left shoulder show severe acromioclavicular joint narrowing, a type 3 acromion, no acute bony abnormalities Assessment & Plan Assessment & Plan (1) Left shoulder pain: Code(s): M25.512 - Pain in left shoulder Category: Medical (2) Rotator cuff insufficiency of left shoulder: Code(s): M25.312 - Other instability, left shoulder Category: Medical Plan Mr. Wilkinson presents with left shoulder pain and weakness due to impingement syndrome and possible rotator cuff tearing. I did recommend that the patient get an MRI of his left shoulder for further evaluation. He wishes to think things over. If he chooses to get the MRI he will contact my office so that the order maybe placed. Otherwise he will continue with his range of motion exercises to prevent stiffness. I spent 21 minutes in reviewing the patient's records and imaging studies, seeing the patient and documenting in the medical record. Orders: Orders XR shoulder LT min 2V Today M25.512 - Pain in left shoulder Coding Level of Care Code Est Pt Level 3 (58366) Complex EM visit Add On G2211 Diagnoses Left shoulder pain M25.512 Rotator cuff insufficiency of left shoulder M25.312
== END 2024-10-06 09:43 | disposition home or self-care (01) ==
LOC: HO.HOS 07:59
PROVIDERS: Visit Provider Orthopaedic Surgery
DX: M25.512 Pain in left shoulder (principal); M25.312 Other instability, left shoulder
CPT/HCPCS: 99213; G2211

== ENCOUNTER 2024-10-06 08:03 | Outpatient (REF) | payer MEDICARE, MEDICAID, SELFPAY ==
--- OUTSIDE RECORDS SUMMARY | 2005-05-12 20:00 | XMS_ITS | Continuity of Care Document ---
Author Organization gisella [facility] Address [address] [address],[address] [place] [address] Phone Care Team Providers Care Business Services Representative Name Role Phone Z-Converted, Provider Unavailable Unavailabl [...] Date Provider Providers Copied on Encounter gisella [facility], [address] [place] [address],[address], [id number], tel:[phone] Converted Locations No Information 6 Z-Convert ed Provider. . Antonino [facility], [address] [place] [address],[address] [address], [place], [place], [id number], tel:[phone] Converted Locations No Information 6 Z-Convert ed Provider. . [facility], [address] [place] [address],[facility] [address], [place], [place], [id number], tel:[phone] [facility] hypercholestero lemiaDysthymic disorder 6 Z-Convert ed Provider. . Family History Family Member Type Diagnosis Age At Onset No Information Payers Payer name Insurance type Covered constitution party ID Authoriza tion(s) No Information Social [...]
--- NOTE | ~2024-10-06 | XR_ITS ---
CLINICAL HISTORY: M25.512 - Pain in left shoulder 2 view left shoulder Comparison: None provided Findings: No fractures or dislocations. Mild degenerative change of the acromioclavicular and glenohumeral joints. No erosions. No radiopaque foreign body. IMPRESSION: 1. No acute findings. Mild degenerative changes. This document has been electronically signed by: Jerry Cardoso MD on 10/07/2024 10:35:42
--- OUTSIDE RECORDS SUMMARY | 2024-10-07 08:08 | XMS_ITS | Referral Summary ---
Author Organization [facility] Address [address] [place] [address] Care Team Providers Care Loader [employer]alt [employer] Name Role Phone Albino Hernandez MD Primary Care Provider [phone] Allergies No known active allergies Medications Freestyle [...] (01/02/2018): Added automatically from request for surgery [id number] Type 2 diabetes mellitus wit hout complication, without long-term current use of insulin 09/19/2017 Male erectile disorder 04/08/2011 Hyperlipidemia 04/08/2011 Resolved Problems Problem Noted Date Diagnosed Date Resolved Date Acute pain of both shoulders 12/29/2017 09/24/2018 Anal polyp 10/10/2017 09/24/2018 Overview (10/10/2017): Added automatically from request for surgery [id number] Fatigue 11/27/2016 09/19/2017 Derangement of medial meniscus [...] Not on file Procedures * Due to [employer] law, this organization might not be sharing [...] to Health Maintenance Results * Due to [employer] law, this organization might not be sharing negative HIV tests. * (ABNORMAL) Hemoglobin A1c (11/14/2022 12:15 PM EDT) Hemoglobin A1C 10.4(H) <5.7 % of total Hgb 11/14/2022 8:16 PM EDT [facility] Comment: For someone without known diabetes, a [...] (MG/DL) 252 mg/dL 11/14/2022 8:16 PM EDT [facility] eAG (MMOL/L) 13.9 mmol/L 11/14/2022 8:16 PM EDT [facility] Blood Structure of peripheral vein / Unknown 11/14/2022 12:15 PM EDT 11/14/2022 6:29 PM EDT us Albino Hernandez MD LAB BLOOD ORDERABLES Final Resul t [facility] [address] [facility] 3rd [address], [place] [address], [employer] [facility] [address] [place] [address] * (ABNORMAL) Basic Metabolic Panel (02/29/2020 9:14 AM EST) Glucose 191(H) 65 - 99 mg/dL 02/29/2020 5:29 PM EST [facility] Comment: Fasting reference interval For someone without known diabetes, a glucose value >125 mg/dL indicates that they may have diabetes and this should be confirmed with a follow-up test. BUN 22 7 - 25 mg/dL 02/29/2020 5:29 PM EST [facility] Creatinine 0.93 0.70 - 1.25 mg/dL 02/29/2020 5:29 PM EST [facility] Comment: For patients >49 years of age, the reference limit for Creatinine is approximately 13% higher for people identified as -Malaysian. eGFR Non- 88 > OR = 60 mL/min/1 .73m2 02/29/2020 5:29 PM EST [facility] eGFR 102 > OR = 60 mL/min/1 .73m2 02/29/2020 5:29 PM EST [facility] [facility] Bun/Creatinine Ratio NOT APPLICABLE (calc) 02/29/2020 5:29 PM EST [facility] Sodium 139 135 - 146 mmol/L 02/29/2020 5:29 PM EST [facility] Potassium 4.4 3.5 - 5.3 mmol/L 02/29/2020 5:29 PM EST [facility] [facility] Chloride 101 98 - 110 mmol/L 02/29/2020 5:29 PM EST [facility] [facility] Carbon Dioxide 26 20 - 32 mmol/L 02/29/2020 5:29 PM EST [facility] [facility] Calcium 9.7 8.6 - 10.3 mg/dL 02/29/2020 5:29 PM EST [employer] [facility] Blood Structure of peripheral vein / Unknown 02/29/2020 9:14 AM EST 02/29/2020 4:14 PM EST Narrative [facility] - 02/29/2020 6:20 PM EST FASTING:YES Sandi Arias ANTIQUE REPAIRER LAB BLOOD ORDERABLES Final Result [facility] [address] [facility] [address]rd [address], [place] [address], [place] [phone] [facility] [address] [place] [address] * COLONOSCOPY (04/08/2018) Narrative Procedure Note Mayito [...] saturations were monitored continuously. The PCF-H190DL OLYMPUS [id number] was introduced through the anus and advanced [...] - 370 mg/dL 06/24/2017 4:47 PM EDT [employer] [facility] Microalbumin 0.4 mg/dL 06/24/2017 4:47 PM EDT [employer] [facility] Comment: Reference Range Not established Microalbumin/Crea tinine Ratio, Random Urine 2 <30 mcg/mg creat 06/24/2017 4:47 PM EDT [employer] [facility] Comment: The ADA defines [...] 06/20/2017 06/24/2017 8:21 AM EDT Sandi Arias ANTIQUE REPAIRER LAB URINE ORDERABLES Final Result [facility] [address] [facility] [address], [place] [address], [place] [phone] [facility] [address] [facility] [address], [place] [address], [place] [phone] * DIABETES EYE EXAM (06/05/2016 8:06 AM EDT) Eye Exam [id number] [facility] MANUAL RESULTS 06/05/2016 8:06 AM EDT us Historical Conversion Provider HEALTH MAINTENANC E Final Result [facility] MANUAL RESULTS from Last 3 Months or Most Recently Relevant to Health Maintenance Insurance MEDICARE [facility] Care Teams Loader [employer]alt [employer] Relationship Specialty Start Date End Date Albino Hernandez MD [address] [place] [id number] PCP - General Family Medicine 11/14/22
--- OUTSIDE RECORDS SUMMARY | 2024-10-07 08:08 | XMS_ITS | Clinical Summary ---
Author Organization [employer] Address [address] [place] [address] Care Team Providers Care Regulatory Law Specialist Name Role Phone Mami Jacob AIMEE Primary Care Provider [phone] Allergies No known active allergies Medications atorvastatin (Lipitor) 40 MG tabletIndications :Hyperlipidemia, unspecified hyperlipidemia type Take 1 tablet (40 mg) by mouth Once per day. 90 tablet 2 12/17/19 24 Active Blood Pressure Monitoring (Blood Pressure Cuff) miscIndications:E levated blood pressure reading 1 kit if needed each day (blood pressure). 1 each 12/17/19 24 Active Blood Glucose Monitoring Suppl (FreeStyle [place] Lite) w/Device kitIndications:Ty pe 2 diabetes mellitus without complication, without long-term current use of insulin ([facility]) Use to test blood sugar bid dx dm 1 kit 12/17/19 24 Active glucose blood test stripIndications: Type 2 diabetes mellitus without complication, without long-term current use of insulin ([facility]) Use daily as needed for [...] complication, without long-term current use of insulin ([facility]) Test daily before all meals/snacks and once before bedtime. 1 each 07/06/19 25 Active Lancets miscIndications:T ype 2 diabetes mellitus without complication, without long-term current use of insulin ([facility]) 1 Lancet if needed each [...] without long-term current use of insulin ([facility]) Take 1 tablet (500 mg) [...] ortho, Pt 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 management for SITE ACQUISITION SPECIALIST and care coordination Other insomnia 04/19/2024 Assessment & Plan (04/19/2024 9:53 AM EST): Pt reports previously was on a nightly pill Trazodone rx sent Low-level of literacy 12/17/2023 Assessment & Plan (12/17/2023 1:29 PM EDT): SITE ACQUISITION SPECIALIST sheet given to patient, Referral to case [...] (12/16/2023): Added automatically from request for surgery [id number] Type 2 diabetes mellitus wit hout complication, [...] Type Department Care Team Description 09/15/2024 Refill [facility] [address] [place] [address] Mami Jacob NP Pain in left knee 08/23/2024 Orders Only [facility] [address] [facility] [place] [address] Mami Jacob NP Type 2 diabetes mellitus with other specified complication, without long-term current use of insulin ([facility]) (Primary Dx); Primary hypertension; Chronic pain of left knee 08/19/2024 Travel 08/05/2024 9:30 AM EDT Clinical Support [facility] [place] [address] Davina Kaur PharmD Tobacco use disorder (Primary Dx) 07/23/2024 Refill [facility] [address] [place] [address] Davina Kaur PharmD 07/22/2024 Travel 07/19/2024 10:15 AM EDT Office Visit [facility] [address] [facility] [place] [address] Mami Jacob NP Type 2 diabetes mellitus with other specified complication, without long-term current use of insulin ([facility]) (Primary Dx); Chronic pain of left knee; Chronic left shoulder pain; Low-level of literacy 07/19/2024 Travel 07/16/2024 Telephone [facility] [address] [place] [address] Amrit Cuevas MA chartprep from Last 3 Months Immunizations Immunization Administration [...] with others, in a hotel, in a skilled nursing, living outside on the street, on a [...] Description 10/19/2024 11:30 AM EDT Office Visit [facility] [address] [place], [place] [phone] Mami Jacob NP [address] [place], [place] [id number] 10/28/2024 9:45 AM EDT Office Visit [facility] [address] [place] [address] Ariane Garza, OD [address] [place] [address] Health Maintenance Due Date Last Done Comments [...] or Tdap) 06/04/2023 06/03/2013 COVID-19 Vaccine ( - season) 2023 Diabetes: Hemoglobin A1C 10/19/2024 025, [...] complication, without long-term current use of insulin ([facility]) POCT GLUCOSE Routine 07/19/2024 10:26 AM EDT Type 2 diabetes mellitus with other specified complication, without long-term current use of insulin ([facility]) from Last 3 Months Results * (ABNORMAL) POCT HGB A1C (07/19/2024 10:27 AM EDT) Hemoglobin A1C 7.8(A) 4.0 - 6.0 % QC Media Lot # [id number] Lot# Expiration Date 111,926 Blood 07/19/2024 10:2 7 AM EDT Mami Jacob NP POINT OF CARE TEST ENTER/EDIT OR DERABLES Final Result * POCT Glucose (07/19/2024 10:26 AM EDT) Glucose Blood, POC 145 60 - 200 mg/dL QC Media Lot # [id number] Lot# Expiration Date 100,725 Blood Capillary blood specimen / Unknown 07/19/2024 10:26 AM EDT Mami Jacob NP POINT OF CARE TEST ENTER/EDIT OR DERABLES Final Result from Last 3 Months Insurance [facility] STANDARD MEDICARE Care Teams Regulatory Law Specialist Relationship Specialty Start Date End Date Mami Jacob NP [address] [place] [phone] PCP - General Family Medicine 12/17/23
== END 2024-10-06 08:04 | disposition home or self-care (01) ==
LOC: HO.HOSX 08:03
PROVIDERS: Visit Provider Orthopaedic Surgery
DX: M25.512 Pain in left shoulder (principal); M25.812 Other specified joint disorders, left shoulder; Z79.899 Other long term (current) drug therapy
CPT/HCPCS: 73030; 99212

== ENCOUNTER → 2024-10-06 08:37 | Outpatient (BNV) | payer MEDICARE, MEDICAID, SELFPAY | PROVIDERS: Visit Provider Radiology Vascular & Interventional Radiology | DX: M25.512 Pain in left shoulder (principal) | CPT/HCPCS: 73030 ==

== ENCOUNTER 2024-10-18 11:22 | Outpatient (REF) | payer MEDICARE, MEDICAID, SELFPAY ==
--- NOTE | ~2024-10-18 | MR_ITS ---
EXAMINATION: MRI LEFT KNEE WITHOUT CONTRAST HISTORY: S83.242A - Other tear of medial meniscus, current injury, left knee COMPARISON: Patient is made to plain films of the left knee dated 09/29/2024. TECHNIQUE: Coronal T1 and fat-suppressed proton density, sagittal proton density and fat-suppressed proton density, and axial fat suppressed T2 weighted MR images of the left knee were obtained. FINDINGS: Bone marrow: Bone marrow signal intensity is normal. Joint effusion: There is no joint effusion. Candelaria's cyst: There is a tiny Candelaria's cyst. Articular cartilage: Intact Muscles/soft tissues: The visualized muscles demonstrate normal signal intensity. Anterior cruciate ligament: Intact Posterior cruciate ligament: Intact Medial collateral ligament: Intact Lateral collateral ligament: Intact Medial meniscus: There is a horizontally oriented linear focus of increased T2 signal intensity in the posterior horn of the medial meniscus. This contacts the inferior joint surface, consistent with a tear. The anterior horn is intact. Lateral meniscus: Intact Flexor mechanism: The popliteus, gastrocnemius, and hamstring tendons are intact. Quadriceps tendon: Intact Patellar tendon: Intact Patellar retinacula: Intact MR/MR knee LT wo con IMPRESSION: Horizontal tear of the posterior horn medial meniscus. Tiny Candelaria's cyst. Electronically signed by: Andrew Fuller MD 10/18/2024 01:38 PM EDT
--- OUTSIDE RECORDS SUMMARY | 2024-10-18 12:02 | XMS_ITS | Clinical Summary ---
Author Organization [employer] Address [address] [place] [address] Care Team Providers Care Artisan Plasterer Name Role Phone Mami Jacob AIMEE Primary Care Provider [phone] Allergies No known active allergies Medications atorvastatin (Lipitor) 40 MG tabletIndications :Hyperlipidemia, unspecified hyperlipidemia type Take 1 tablet (40 mg) by mouth Once per day. 90 tablet 2 12/17/19 24 Active Blood Pressure Monitoring (Blood Pressure Cuff) miscIndications:E levated blood pressure reading 1 kit if needed each day (blood pressure). 1 each 12/17/19 24 Active Blood Glucose Monitoring Suppl (FreeStyle [place] Lite) w/Device kitIndications:Ty pe 2 diabetes mellitus without complication, without long-term current use of insulin ([facility]) Use to test blood sugar bid dx dm 1 kit 12/17/19 24 Active nicotine (Nicoderm, Step 3) 7 MG/24HR patchIndications: Tobacco use disorder APPLY 1 PATCH TOPICALLY TO THE SKIN IN THE MORNING *DO NOT SMOKE WHILE USING PATCH* 30 patch 04/09/19 25 Active traZODone (Desyrel) 50 MG tablet Take 1 tablet (50 mg) by mouth at bedtime. 30 tablet 3 04/19/19 25 Active nicotine polacrilex (Commit) 2 MG [...] per day. 30 tablet 11 08/24/19 25 2025 Active metFORMIN XR (Glucophage-XR) 500 MG 24 hr tabletIndications :Type 2 diabetes mellitus with other specified complication, without long-term current use of insulin (CMS/HCC) Take 1 tablet (500 mg) by mouth 2 times daily. Do not crush, chew, or split. 180 tablet 3 08/24/19 25 2025 Active acetaminophen (Tylenol 8 Hour) 650 MG ER tabletIndications :Pain in left knee TAKE 1 TABLET BY MOUTH TWICE DAILY IN THE MORNING AND AT BEDTIME NEEDED FOR MILD PAIN. DO NOT BREAK, CRUSH, DISSOLVE OR CHEW. 60 tablet 2 09/16/19 25 Active Alcohol Sheets (Alcoh-Wipe) sheetIndications: Type 2 diabetes mellitus without complication, without long-term current use of insulin (CMS/HCC) Test daily before all meals/snacks and once before bedtime. 1 each 10/19/19 25 Active glucose blood test stripIndications: Type 2 diabetes mellitus without complication, without long-term current use of insulin (CMS/HCC) Use daily as needed for blood sugar, freestyle lite 100 each 1 10/19/19 25 2025 Active Lancets miscIndications:T ype 2 diabetes mellitus without complication, without long-term current use of insulin (CMS/HCC) 1 Lancet if needed each day (as needed). 90 each 10/19/19 25 Active glucose blood test stripIndications: Type 2 diabetes mellitus without complication, without long-term current use of insulin (CMS/HCC) Use daily as needed for blood sugar, freestyle lite 100 each 1 12/19/19 24 2024 Discontinued(R eorder (will not trigger notification to Pharmacy)) Alcohol Sheets (Alcoh-Wipe) sheetIndications: Type 2 diabetes mellitus without complication, without long-term current use of insulin (CMS/HCC) Test daily before all meals/snacks and once before bedtime. 1 each 07/06/19 25 2024 Discontinued(R eorder (will not trigger notification to Pharmacy)) Lancets miscIndications:T ype 2 diabetes mellitus without complication, without long-term current use of insulin (CMS/HCC) 1 Lancet if needed each day (as needed). 90 each 07/06/19 25 2024 Discontinued(R eorder (will not trigger notification to Pharmacy)) Active Problems Problem Noted Date Diagnosed Date [...] ortho, Pt 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 management for FOUNDATION STAGE TEACHER and care coordination Other insomnia 04/19/2024 Assessment & Plan (04/19/2024 9:53 AM EST): Pt reports previously was on a nightly pill Trazodone rx sent Low-level of literacy 12/17/2023 Assessment & Plan (12/17/2023 1:29 PM EDT): FOUNDATION STAGE TEACHER sheet given to patient, Referral to case [...] (12/16/2023): Added automatically from request for surgery [id number] Type 2 diabetes mellitus wit hout complication, [...] Encounters Date Type Department Care Team Description 10/18/2024 Refill [facility] NIR Azar [phone] Mami Jacob NP Type 2 diabetes mellitus without complication, without long-term current use of insulin ([facility]) 09/15/2024 Refill [facility] [place] [address] Mami Jacob NP Pain in left knee 08/23/2024 Orders Only [facility] [place] [address] Mami Jacob NP Type 2 diabetes mellitus with other specified complication, without long-term current use of insulin ([facility]) (Primary Dx); Primary hypertension; Chronic pain of left knee 08/19/2024 Travel 08/05/2024 9:30 AM EDT Clinical Support [facility] [place] [address] Davina Kaur PharmD Tobacco use disorder (Primary Dx) 07/23/2024 Refill [facility] [place] [address] Davina Kaur PharmD 07/22/2024 Travel 07/19/2024 10:15 AM EDT Office Visit [facility] [place] [address] Mami Jacob NP Type 2 diabetes mellitus with other specified complication, without long-term current use of insulin ([facility]) (Primary Dx); Chronic pain of left knee; Chronic left shoulder pain; Low-level of literacy 07/19/2024 Travel from Last 3 Months Immunizations Immunization Administration [...] others, in a hotel, in a senior care, living outside on the street, on a [...] Description 10/19/2024 11:30 AM EDT Office Visit [facility] [address] [place] [address] Mami Jacob, AIMEE [address] [place] [address] 10/28/2024 9:45 AM EDT Office Visit [facility] [address] [place] [address] Ariane Garza, OD [address] [place] [address] Health Maintenance Due Date Last Done Comments [...] complication, without long-term current use of insulin ([facility]) POCT GLUCOSE Routine 07/19/2024 10:26 AM EDT Type 2 diabetes mellitus with other specified complication, without long-term current use of insulin ([facility]) from Last 3 Months Results * (ABNORMAL) POCT HGB A1C (07/19/2024 10:27 AM EDT) Hemoglobin A1C 7.8(A) 4.0 - 6.0 % QC Media Lot # [id number] Lot# Expiration Date [id number] Blood 07/19/2024 10:2 7 AM EDT Mami Graef MAGNETIC RESONANCE TECHNOLOGIST POINT OF CARE TEST ENTER/EDIT OR DERABLES Final Result * POCT Glucose (07/19/2024 10:26 AM EDT) Glucose Blood, POC 145 60 - 200 mg/dL QC Media Lot # [id number] Lot# Expiration Date [id number] Blood Capillary blood specimen / Unknown 07/19/2024 10:26 AM EDT Result [facility] Mami Jacob MAGNETIC RESONANCE TECHNOLOGIST POINT OF CARE TEST ENTER/EDIT OR DERABLES Final Result from Last 3 Months Insurance [facility] STANDARD MEDICARE Care Teams Artisan Plasterer Relationship Specialty Start Date End Date Mami Jacob NP [address] [place] [phone] PCP - General Family Medicine 12/17/23
--- OUTSIDE RECORDS SUMMARY | 2024-10-18 12:02 | XMS_ITS | Referral Summary ---
Author Organization [facility] Address [address] [place] [address] Care Team Providers Care Purchase Analyst Name Role Phone Albino Hernandez MD Primary Care Provider [phone] Allergies No known active allergies Medications Freestyle [...] (01/02/2018): Added automatically from request for surgery [id number] Type 2 diabetes mellitus wit hout complication, without long-term current use of insulin 09/19/2017 Male erectile disorder 04/08/2011 Hyperlipidemia 04/08/2011 Resolved Problems Problem Noted Date Diagnosed Date Resolved Date Acute pain of both shoulders 12/29/2017 09/24/2018 Anal polyp 10/10/2017 09/24/2018 Overview (10/10/2017): Added automatically from request for surgery [id number] Fatigue 11/27/2016 09/19/2017 Derangement of medial meniscus [...] Not on file Procedures * Due to [place] [employer] law, this organization might not be sharing [...] to Health Maintenance Results * Due to [place] [employer] law, this organization might not be sharing negative HIV tests. * (ABNORMAL) Hemoglobin A1c (11/14/2022 12:15 PM EDT) Hemoglobin A1C 10.4(H) <5.7 % of total Hgb 11/14/2022 8:16 PM EDT [employer] Comment: For someone without known diabetes, a [...] (MG/DL) 252 mg/dL 11/14/2022 8:16 PM EDT [employer] eAG (MMOL/L) 13.9 mmol/L 11/14/2022 8:16 PM EDT [employer] Blood Structure of peripheral vein / Unknown 11/14/2022 12:15 PM EDT 11/14/2022 6:29 PM EDT us Albino Hernandez MD LAB BLOOD ORDERABLES Final Resul t [facility] [address], [place] [address], [facility] [employer] [facility] [address] [place] [address] * (ABNORMAL) Basic Metabolic Panel (02/29/2020 9:14 AM EST) Glucose 191(H) 65 - 99 mg/dL 02/29/2020 5:29 PM EST [employer] Comment: Fasting reference interval For someone without known diabetes, a glucose value >125 mg/dL indicates that they may have diabetes and this should be confirmed with a follow-up test. BUN 22 7 - 25 mg/dL 02/29/2020 5:29 PM EST [employer] Creatinine 0.93 0.70 - 1.25 mg/dL 02/29/2020 5:29 PM EST [employer] Comment: For patients >49 years of age, the reference limit for Creatinine is approximately 13% higher for people identified as -Croatian. eGFR Non- 88 > OR = 60 mL/min/1 .73m2 02/29/2020 5:29 PM EST [facility] eGFR 102 > OR = 60 mL/min/1 .73m2 02/29/2020 5:29 PM EST [facility] Bun/Creatinine Ratio NOT APPLICABLE (calc) 02/29/2020 5:29 PM EST [facility] Sodium 139 135 - 146 mmol/L 02/29/2020 5:29 PM EST [facility] Potassium 4.4 3.5 - 5.3 mmol/L 02/29/2020 5:29 PM EST [facility] Chloride 101 98 - 110 mmol/L 02/29/2020 5:29 PM EST [facility] Carbon Dioxide 26 20 - 32 mmol/L 02/29/2020 5:29 PM EST [facility] Calcium 9.7 8.6 - 10.3 mg/dL 02/29/2020 5:29 PM EST [facility] Blood Structure of peripheral vein / Unknown 02/29/2020 9:14 AM EST 02/29/2020 4:14 PM EST Narrative [facility] - 02/29/2020 6:20 PM EST FASTING:YES Sandi Arias MEDICAL ADMINISTRATIVE LAB BLOOD ORDERABLES Final Result [facility] [address], [place] [address], [place] [phone] [facility] [address] [place] [address] * COLONOSCOPY (04/08/2018) Narrative Procedure Note Mayito [...] saturations were monitored continuously. The [id number] OLYMPUS [id number] was introduced through the anus and advanced [...] - 370 mg/dL 06/24/2017 4:47 PM EDT [facility] Microalbumin 0.4 mg/dL 06/24/2017 4:47 PM EDT [facility] [employer] [facility] Comment: Reference Range Not established Microalbumin/Crea tinine Ratio, Random Urine 2 <30 mcg/mg creat 06/24/2017 4:47 PM EDT [facility] [employer] [facility] Comment: The ADA defines abnormalities in albumin [...] 06/20/2017 06/24/2017 8:21 AM EDT Sandi Arias MEDICAL ADMINISTRATIVE LAB URINE ORDERABLES Final Result [facility] [address], [place] [address], [place] [phone] [facility] [address], [place] [address], [place] [phone] * DIABETES EYE EXAM (06/05/2016 8:06 AM EDT) Eye Exam [id number] [facility] MANUAL RESULTS 06/05/2016 8:06 AM EDT us Historical Conversion Provider HEALTH MAINTENANC E Final Result [facility] MANUAL RESULTS from Last 3 Months or Most Recently Relevant to Health Maintenance Insurance MEDICARE [facility] Care Teams Purchase Analyst Relationship Specialty Start Date End Date Albino Hernandez MD [address] [place] [phone] PCP - General Family Medicine 11/14/22
== END 2024-10-18 11:23 | disposition home or self-care (01) ==
LOC: HO.MRI 11:22
PROVIDERS: Visit Provider Orthopaedic Surgery
DX: S83.242A Other tear of medial meniscus, current injury, left knee, initial encounter (principal)
CPT/HCPCS: 73721

== ENCOUNTER → 2024-10-18 11:26 | Outpatient (BNV) | payer MEDICARE, MEDICAID, SELFPAY | PROVIDERS: Visit Provider Radiology Diagnostic Radiology | DX: M23.222 Derangement of posterior horn of medial meniscus due to old tear or injury, left knee (principal) | CPT/HCPCS: 73721 ==

== ENCOUNTER 2024-10-19 11:34 | Outpatient (REF) | payer MEDICARE, MEDICAID, SELFPAY ==
--- OUTSIDE RECORDS SUMMARY | 2024-10-19 12:38 | XMS_ITS | Referral Summary ---
Author Organization [facility] Address [address] [place] [address] Care Team Providers Care Environmental Professional Name Role Phone Albino Hernandez MD Primary Care Provider [phone] Allergies No known active allergies Medications Freestyle [...] (01/02/2018): Added automatically from request for surgery [id number] Type 2 diabetes mellitus wit hout complication, without long-term current use of insulin 09/19/2017 Male erectile disorder 04/08/2011 Hyperlipidemia 04/08/2011 Resolved Problems Problem Noted Date Diagnosed Date Resolved Date Acute pain of both shoulders 12/29/2017 09/24/2018 Anal polyp 10/10/2017 09/24/2018 Overview (10/10/2017): Added automatically from request for surgery [id number] Fatigue 11/27/2016 09/19/2017 Derangement of medial meniscus [...] Not on file Procedures * Due to [place] [employer] law, this organization might not be sharing [...] to Health Maintenance Results * Due to [place] [employer] law, this organization might not be sharing negative HIV tests. * (ABNORMAL) Hemoglobin A1c (11/14/2022 12:15 PM EDT) Hemoglobin A1C 10.4(H) <5.7 % of total Hgb 11/14/2022 8:16 PM EDT [facility] Comment: For someone without known diabetes, a [...] (MG/DL) 252 mg/dL 11/14/2022 8:16 PM EDT [facility] eAG (MMOL/L) 13.9 mmol/L 11/14/2022 8:16 PM EDT [facility] Blood Structure of peripheral vein / Unknown 11/14/2022 12:15 PM EDT 11/14/2022 6:29 PM EDT us Albino Hernandez MD LAB BLOOD ORDERABLES Final Resul t [facility] [address] [facility] 3rd Floor, [place] [address], [facility] [address] [place] [address] * (ABNORMAL) Basic Metabolic Panel (02/29/2020 9:14 AM EST) Glucose 191(H) 65 - 99 mg/dL 02/29/2020 5:29 PM EST [facility] Comment: Fasting reference interval For someone without known diabetes, a glucose value >125 mg/dL indicates that they may have diabetes and this should be confirmed with a follow-up test. BUN 22 7 - 25 mg/dL 02/29/2020 5:29 PM EST [facility] Creatinine 0.93 0.70 - 1.25 mg/dL 02/29/2020 5:29 PM EST [facility] Comment: For patients >49 years of age, the reference limit for Creatinine is approximately 13% higher for people identified as -Panamanian. eGFR Non- 88 > OR = 60 mL/min/1 .73m2 02/29/2020 5:29 PM EST [facility] eGFR 102 > OR = 60 mL/min/1 .73m2 02/29/2020 5:29 PM EST [facility] Bun/Creatinine Ratio NOT APPLICABLE (calc) 02/29/2020 5:29 PM EST [facility] Sodium 139 135 - 146 mmol/L 02/29/2020 5:29 PM EST [facility] Potassium 4.4 3.5 - 5.3 mmol/L 02/29/2020 5:29 PM EST [facility] Chloride 101 98 - 110 mmol/L 02/29/2020 5:29 PM EST [facility] Carbon Dioxide 26 20 - 32 mmol/L 02/29/2020 5:29 PM EST [facility] Calcium 9.7 8.6 - 10.3 mg/dL 02/29/2020 5:29 PM EST [facility] Blood Structure of peripheral vein / Unknown 02/29/2020 9:14 AM EST 02/29/2020 4:14 PM EST Narrative [facility] - 02/29/2020 6:20 PM EST FASTING:YES Sandi Arias [employer] LAB BLOOD ORDERABLES Final Result [facility] [address] [facility] 3rd Floor, [place] [address], [place] [phone] [facility] [address] [place] [address] * COLONOSCOPY (04/08/2018) Narrative Procedure Note Mayito [...] saturations were monitored continuously. The PCF-H190DL OLYMPUS [id number] was introduced through the anus and advanced [...] - 370 mg/dL 06/24/2017 4:47 PM EDT [facility] Microalbumin 0.4 mg/dL 06/24/2017 4:47 PM EDT [facility] Comment: Reference Range Not established Microalbumin/Crea tinine Ratio, Random Urine 2 <30 mcg/mg creat 06/24/2017 4:47 PM EDT [facility] Comment: The ADA defines abnormalities in albumin [...] 06/20/2017 06/24/2017 8:21 AM EDT Sandi Arias [employer] DEVELOPER LAB URINE ORDERABLES Final Result [facility] [address] [facility] 3rd [address], [place] [address], [place] [phone] [facility] [address] [facility] 3rd [address], [place] [address], [place] [phone] * DIABETES EYE EXAM (06/05/2016 8:06 AM EDT) Eye Exam [id number] [facility] MANUAL RESULTS 06/05/2016 8:06 AM EDT us Historical Conversion Provider HEALTH MAINTENANC E Final Result [facility] MANUAL RESULTS from Last 3 Months or Most Recently Relevant to Health Maintenance Insurance MEDICARE [facility] Care Teams Environmental Professional Relationship Specialty Start Date End Date Albino Hernandez MD [address] [place] [id number] PCP - General Family Medicine 11/14/22
--- OUTSIDE RECORDS SUMMARY | 2024-10-19 12:39 | XMS_ITS | Clinical Summary ---
Author Organization [employer] Address [address] [facility] [address] [place] [address] Care Team Providers Care Drill Operator Automatic Name Role Phone Mami Jacob AIMEE Primary Care Provider [phone] Allergies No known active allergies Medications atorvastatin (Lipitor) 40 MG tabletIndications :Hyperlipidemia, unspecified hyperlipidemia type Take 1 tablet (40 mg) by mouth Once per day. 90 tablet 2 12/17/19 24 Active Blood Pressure Monitoring (Blood Pressure Cuff) miscIndications:E levated blood pressure reading 1 kit if needed each day (blood pressure). 1 each 12/17/19 24 Active Blood Glucose Monitoring Suppl (FreeStyle [place] Lite) w/Device kitIndications:Ty pe 2 diabetes mellitus without complication, without long-term current use of insulin ([facility]) Use to test blood sugar bid dx [...] 30 tablet 11 08/24/19 25 2025 Active acetaminophen (Tylenol 8 [...] for blood sugar, freestyle lite 100 each 10/19/19 25 2025 Active Lancets miscIndications:T ype 2 diabetes mellitus without complication, without long-term current use of insulin (CMS/HCC) 1 Lancet if needed each day (as needed). 90 each 10/19/19 25 Active metFORMIN XR (Glucophage-XR) 500 MG 24 hr tabletIndications :Type 2 diabetes mellitus with other specified complication, without long-term current use of insulin (CMS/HCC) Take 1 tablet (500 mg) by mouth 2 times daily. Do not crush, chew, or split. 180 tablet 3 10/20/19 25 2025 Active glucose blood test stripIndications: Type 2 diabetes mellitus without complication, without long-term current use of insulin (CMS/HCC) Use daily as needed for blood sugar, freestyle lite 100 each 12/19/19 24 2024 Discontinued(R eorder (will not [...] eorder (will not trigger notification to Pharmacy)) metFORMIN XR (Glucophage-XR) 500 MG 24 hr tabletIndications :Type 2 diabetes mellitus with other specified complication, without long-term current use of insulin ([facility]) Take 1 tablet (500 mg) by mouth 2 times daily. Do not crush, chew, or split. 180 tablet 3 08/24/19 25 2024 Discontinued(R eorder (will not trigger notification to Pharmacy)) metFORMIN XR (Glucophage-XR) 500 MG 24 hr tabletIndications :Type 2 diabetes mellitus with other specified complication, without long-term current use of insulin ([facility]) Take 1 tablet (500 mg) by mouth 3 times daily. Do not crush, chew, or split. 270 tablet 3 10/20/19 25 2024 Discontinued(R eorder (will not trigger notification to Pharmacy)) Active Problems Problem Noted Date Diagnosed Date Arthritis of left knee 10/19/2024 Assessment & Plan (10/19/2024 12:32 PM EDT): In care with ortho, swelling with weight bearing activity, will benefit from brace, Colon cancer screening 10/19/2024 Overview (10/19/2024): 2022 , due in 3 years DM (diabetes mellitus) type II, controlled, with peripheral vascular disorder 10/19/2024 Overview (10/19/2024): Foot exam wnl 10/2024 Assessment & Plan (10/19/2024 12:31 PM EDT): Mildly elevated 7.7% Increase metformin to 500 mg bid (nicole box team called and updated) Diabetic foot exam completed today, Nicotine dependence, cigarettes, in remission Assessment & Plan (10/19/2024 12:32 PM EDT): Utilizing patch , quit 10/[address] ordered Type 2 diabetes mellitus, wi thout long-term current use of insulin 07/19/2024 Assessment & Plan (07/19/2024 8:25 PM EDT): Difficulty managing chronic conditions in part due to low literacy Referral for med box Pharmacy team into schedule with patient Chronic left shoulder pain 07/19/2024 Assessment & Plan (07/19/2024 8:24 PM EDT): Referral to ortho, Pt 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 management 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 ESTATE 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 MANAGER and care coordination Other insomnia 04/19/2024 Assessment & Plan (04/19/2024 9:53 AM EST): Pt reports previously was on a nightly pill Trazodone rx sent Low-level of literacy 12/17/2023 Assessment & Plan (12/17/2023 1:29 PM EDT): REAL ESTATE TRANSACTION MANAGER sheet given to patient, Referral to case [...] (12/16/2023): Added automatically from request for surgery [id number] Type 2 diabetes mellitus wit hout complication, [...] Encounters Date Type Department Care Team Description 10/19/2024 11:30 AM EDT Office Visit [facility] [address] [place] [phone] Mami Jacob NP DM (diabetes mellitus) type II, controlled, with peripheral vascular disorder ([facility]) (Primary Dx); Colon cancer screening; Type 2 diabetes mellitus with other specified complication, without long-term current use of insulin (CMS/HCC); Arthritis of left knee; Tobacco use disorder; Nicotine dependence, cigarettes, in remission; Healthcare maintenance 10/19/2024 Travel 10/18/2024 Refill [facility] [address] [facility] [place] [address] Mami Jacob NP Type 2 diabetes mellitus without complication, without long-term current use of insulin ([facility]) 09/15/2024 Refill [facility] [address] [facility] [place] [address] Mami Jacob NP Pain in left knee 08/23/2024 Orders Only [facility] [address] [facility] [place] [address] Mami Jacob NP Type 2 diabetes mellitus with other specified complication, without long-term current use of insulin ([facility]) (Primary Dx); Primary hypertension; Chronic pain of left knee 08/19/2024 Travel 08/05/2024 9:30 AM EDT Clinical Support [facility] [address] [facility] [place] [address] Davina Kaur PharmD Tobacco use disorder (Primary Dx) 07/23/2024 Refill [facility] [address] [place] [address] Davina Kaur PharmD 07/22/2024 Travel 07/19/2024 10:15 AM EDT Office Visit [facility] [address] [place] [address] Mami Jacob NP Type 2 diabetes mellitus with other specified complication, without long-term current use of insulin ([facility]) (Primary Dx); Chronic pain of left knee; Chronic left shoulder pain; Low-level of literacy 07/19/2024 Travel from Last 3 Months Immunizations Immunization Administration Dates Next Due Influenza Quadrivalent Adjuvanted 11/16/2022 Influenza injectable quadriv alent IIV4 with preservative 12/23/2017 Influenza injectable quadrivalent preservative f ree 10/16/2019,01/02/2017 Influenza, High Dose Seasonal, Preservative Free 12/17/2023 Influenza, IIV3, injectable 11/08/2011 Influenza, seasonal, injectable, preservative fr ee 12/02/2015 Pneumococcal Polysaccharide PPSV23 06/03/2013 Tdap 06/03/2013 Social History Tobacco Use Types Packs/Day Years Used Date Smoking Tobacco: Former Cigarettes 0.5 40 S tarted: 10/19/1984 Smokeless Tobacco: Never Tobacco Cessation:Counseling Given: Yes Passive Exposure Comments:Pt using the patches Alcohol Use Standard Drinks/Week Comments Never 0 [...] with others, in a hotel, in a alf, living outside on the street, on a [...] Sign Reading Time Taken Comments Blood Pressure 96/64 10/19/2024 11:02 AM EDT Pulse 85 10/19/2024 11:02 AM EDT Temperature 36.8 C (98.2 F) 10/19/2024 11:02 AM EDT Respiratory Rate 18 10/19/2024 11:02 AM EDT Oxygen Saturation 93% 10/19/2024 11:02 AM EDT Inhaled Oxygen Concentration - - Weight 53.3 kg (117 lb 6.4 oz) 10/19/2024 11:02 AM EDT Height 157.5 cm (5' 2 ) 10/19/2024 11:02 AM EDT Body Mass Index 21.47 10/19/2024 11:02 AM EDT Plan of Treatment Upcoming Encounters Date Type Department Care Team (Late st Contact Info) Description 10/28/2024 9:45 AM EDT Office Visit [facility] [address] [place] [address] Ariane Garza, OD [address] [place] [address] Health Maintenance Due Date Last Done Comments CT Colonography 1957 Colonoscopy 1957 Colorectal Cancer Screening 1957 FIT DNA/Cologuard 1957 FIT 1957 FOBT 1957 Lipid Panel 1957 Sigmoidoscopy 1957 Hepatitis C Screening 10/25/1975 Zoster Vaccines (1 of 2) 10/25/2007 Pneumococcal Vaccine: 50+ Years (2 of 2 - PCV) 06/03/2014 06/03/2013 Diabetes: Urine Protein Screening 06/20/2018 06/20/2017 Eye Exam 12/17/2018 12/17/2016 DTaP/Tdap/Td Vaccines (2 - Td or Tdap) 06/04/2023 06/03/2013 COVID-19 Vaccine ( - season) 2023 Influenza Vaccine (#1) 2024 , 11/16/2022, 10/16/2019, Additional history exists SDOH Screening 12/09/2024 12/10/2023 Alcohol/Substance Use Screening 12/16/2024 12/17/2023 Depression Screening 12/16/2024 12/17/2023, 12/17/19 24 Diabetes: Hemoglobin A1C 01/19/2025 025, 07/19/2024, 03/17/2024, Additional history exists Diabetes: Foot Exam 10/19/2025 10/19/2024, 10/19/2024, 10/19/2024 Tobacco Screening 10/19/2025 10/19/2024 RSV Patients and Patients Aged 60 years [...] Diagnosis Comments POCT GLYCATED HEMOGLOBIN, TOTAL Routine 10/19/2024 11:37 AM EDT DM (diabetes mellitus) type II, controlled, with peripheral vascular disorder ([facility]) POCT GLUCOSE Routine 10/19/2024 11:36 AM EDT DM (diabetes mellitus) type II, controlled, with peripheral vascular disorder (CMS/HCC) POCT GLYCATED HEMOGLOBIN, TOTAL Routine 07/19/2024 10:27 AM EDT Type 2 diabetes mellitus with other specified complication, without long-term current use of insulin ([facility]) POCT GLUCOSE Routine 07/19/2024 10:26 AM EDT Type 2 diabetes mellitus with other specified complication, without long-term current use of insulin ([facility]) from Last 3 Months Results * (ABNORMAL) POCT HGB A1C (10/19/2024 11:37 AM EDT) Only the most recent of2 resultswithin the time period is included. Hemoglobin A1C 7.7(A) 4.0 - 5.7 % QC Media Lot # [id number] Lot# Expiration Date 627 Blood 10/19/2024 11:3 7 AM EDT Mami Jacob AN/SYQ 13 NAV/C2 OPERATOR POINT OF CARE TEST ENTER/EDIT OR DERABLES Final Result * POCT Glucose (10/19/2024 11:36 AM EDT) Only the most recent of2 resultswithin the time period is included. Glucose Blood, POC 172 60 - 200 mg/dL QC Media Lot # [id number] Lot# Expiration Date 103,025 Blood Capillary blood specimen / Unknown 10/19/2024 11:36 AM EDT Mami Jacob AN/SYQ 13 NAV/C2 OPERATOR POINT OF CARE TEST ENTER/EDIT OR DERABLES Final Result from Last 3 Months Insurance [facility] STAND[facility] MEDICARE Care Teams Drill Operator Automatic Relationship Specialty Start Date End Date Mami Jacob NP [address] [place] [address] PCP - General Family Medicine 12/17/23
[2024-10-19 13:27] LABS: MANUAL DIFF FLAG NO
[2024-10-19 13:34] LABS: Hematocrit 37.8 % (42.0-52.0); Hemoglobin 12.7 g/dl (14.0-18.0); Imm Gran Abs Auto 0.01 X10*3/uL (0.00-0.03); Imm Gran Pct Auto 0.2 % (0.0-0.4); Lymphocytes Absolute Auto 3.2 X10*3/uL (1.2-4.9); Mean Corpuscular HGB Conc 33.6 g/dl (31.0-36.0); Mean Corpuscular Hemoglobin 30.2 pg (27.0-33.0); Mean Corpuscular Volume 90.0 fL (80.0-98.0); NRBC Abs Auto 0.000 X10*3/uL (0.0-0.012); NRBC Pct Auto 0.0 /100WBC (0.0-0.2); Platelet Count 369 X10*3/uL (160-400); Red Blood Count 4.20 X10*6/uL (4.60-5.80); White Blood Count 6.4 X10*3/uL (4.8-10.8)
[2024-10-19 14:07] LABS: Alanine Aminotransferase 18 U/L (0-40); Albumin Level 4.5 g/dL (3.5-5.0); Alkaline Phosphatase 100 U/L (39-117); Anion Gap 12 (12-20); Aspartate Amino Transferase 19 U/L (5-37); Blood Urea Nitrogen 14 mg/dL (9-16); Calcium 9.2 mg/dL (8.4-10.2); Carbon Dioxide 29 mmol/L (22-29); Chloride 105 mmol/L (96-108); Cholesterol 125 mg/dL (<200); Estimated Glomerular Filt Rate > 60; HDL Cholesterol 33 mg/dL (>40); Potassium 4.0 mmol/L (3.3-5.1); Sodium 142 mmol/L (135-145); Total Protein 7.0 g/dL (6.5-8.0); Triglycerides 160 mg/dL (<150)
== END 2024-10-19 11:35 | disposition home or self-care (01) ==
LOC: HO.HHCL 11:34
PROVIDERS: PCP Nurse Practitioner Family; Visit Provider Nurse Practitioner Family
DX: Z00.00 Encounter for general adult medical examination without abnormal findings (principal); Z12.5 Encounter for screening for malignant neoplasm of prostate; E78.2 Mixed hyperlipidemia; R03.0 Elevated blood-pressure reading, without diagnosis of hypertension; E11.51 Type 2 diabetes mellitus with diabetic peripheral angiopathy without gangrene
CPT/HCPCS: 36415; 80053; 80061; 84153; 85025

== ENCOUNTER 2024-11-04 09:56 | Outpatient (AMB) | payer MEDICARE, MEDICAID, SELFPAY ==
--- OUTSIDE RECORDS SUMMARY | 2005-05-12 20:00 | XMS_ITS | Continuity of Care Document ---
Author Organization gisella [facility] Address [address] [address],[address] [place] [address] Phone Care Team Providers Care Boxing Promoter Name Role Phone Z-Converted, Provider Unavailable Unavailabl [...] Date Provider Providers Copied on Encounter gisella [facility], [address] [place] [address],[address], [id number], tel:[phone] Converted Locations No Information 6 Z-Convert ed Provider. . Antonino [facility], [address] [place] [address],[address] [address], [place], [place], [id number], tel:[phone] Converted Locations No Information 6 Z-Convert ed Provider. . [facility], [address] [place] [address],[facility] [address], [place], [place], [id number], tel:[phone] [facility] hypercholestero lemiaDysthymic disorder 6 Z-Convert ed Provider. . Family History Family Member Type Diagnosis Age At Onset No Information Payers Payer name Insurance type Covered libertarian ID Authoriza tion(s) No Information Social History [...]
--- NOTE | 2024-11-04 10:04 | MHC.OFFVIS ---
Intake Visit Reasons: OV- MRI Review of the Left knee Intake Note: Timo is a 69 year old male who presents today as a MRI Review of his left knee, 10/18/24. The patient states that he only has discomfort when it is cold outside. On those days he wears a knee brace which gives him fairly good relief. Hands Assembler Required: Yes Hands Assembler Language: Business Computers Teacher Services: Hands Assembler Present (iPad) Hands Assembler Name: [id number] Allergies No Known Allergies Allergy (Verified 11/04/24 10:04) Medication List - Last Reconciled 11/04/24 by Kayden Billy MD acetaminophen ER 650 mg PO alcohol swabs (Alcohol Prep Pads) pad topical QID atorvastatin 40 mg PO QAM blood sugar diagnostic (FreeStyle Lite Strips) As directed blood-glucose meter (FreeStyle [place] Lite kit) As directed lancets ([employer]plus Lancets) As directed lisinopril 5 mg PO QAM metformin ER 500 mg PO QPM trazodone 50 mg PO BEDTIME PFSH Social History (Updated 11/04/24 @ 10:05 by SANTANA Jose) Current occupational status: retired Physical Exam Const Other: Well-nourished well-developed very friendly male awake alert and oriented x3 in no acute distress Extrem Other: Left knee examination shows a minimal effusion, minimal crepitus with range of motion, tenderness along his medial joint line, positive Johann's test, no instability Results Reviewed Results Reviewed: MRI of the patient's left knee shows mild diffuse degenerative changes as well as a tear of the medial meniscus Assessment & Plan Assessment & Plan (1) Tear of medial meniscus of left knee: Code(s): S83.242A - Other tear of medial meniscus, current injury, left knee, initial encounter Category: Medical Plan Mr. Wilkinson presents with intermittent left knee discomfort due to early degenerative joint disease as well as a medial meniscus tear. I had a lengthy discussion with the patient regarding the treatment options. At this point the patient's symptoms are tolerable to him. He will continue with his activity modifications. He will follow up with me on an as-needed basis should his symptoms worsen in any way. Feel free to call me at any time should questions regarding his orthopedic management arise. I spent 22 minutes in reviewing the patient's records and imaging studies, seeing the patient and documenting in the medical record. Coding Level of Care Code Est Pt Level 3 (44223) Complex EM visit Add On G2211 Diagnoses Tear of medial meniscus of left knee S83.242A
--- OUTSIDE RECORDS SUMMARY | 2024-11-04 11:05 | XMS_ITS | Clinical Summary ---
Author Organization [facility] Address [address] [place] [address] Care Team Providers Care Nurse Clinician Name Role Phone Albino Hernandez MD Primary Care Provider [phone] Allergies No known active allergies Medications Freestyle [...] (01/02/2018): Added automatically from request for surgery [id number] Type 2 diabetes mellitus wit hout complication, without long-term current use of insulin 09/19/2017 Male erectile disorder 04/08/2011 Hyperlipidemia 04/08/2011 Resolved Problems Problem Noted Date Diagnosed Date Resolved Date Acute pain of both shoulders 12/29/2017 09/24/2018 Anal polyp 10/10/2017 09/24/2018 Overview (10/10/2017): Added automatically from request for surgery [id number] Fatigue 11/27/2016 09/19/2017 Derangement of medial meniscus 12/22/2015 03/21/2017 Pain in knee 12/12/2015 03/21/2017 Sciatica 12/06/2015 03/21/2017 Diabetes mellitus 12/14/2014 09/19/2017 Nonspecific abnormal finding 06/09/2013 09/19/2017 Immunizations Immunization Administration Dates Next Due Influenza, Injectable, Quadr ivalent, Contains Preservative 12/23/2017 Pneumococcal Polysaccharide Vaccine, 23 Valent 0 06/03/2013 Tetanus Toxoid, Reduced Diph theria Toxoid, and Acellular Pertussis Vaccine, Adsorbed 06/03/2013 Family History Medical History Relation Name Comments Diabetes Mother Other Sister Family History of diabetes mellitus Relation Name Status Comments Father Mother Sister Social History Tobacco Use Types Packs/Day Years Used Date Smoking Tobacco: Some Days Cigarettes Smokeless Tobacco: Never Tobacco Cessation:Ready to Q uit: Yes; Counseling Given: Yes Comments:would be interested in using the patch Alcohol Use Standard Drinks/Week Comments No 0 (1 standard drink = 0.6 oz pur e alcohol) Transportation Answer Date Recorded Please alban the areas for wh ich the patient would like information or assistance: None Apply 11/14/2022 Lack of Transportation (Medical) Not on file 11/14/2022 Housing Stability Answer Date Recorded Please alban the areas for wh ich the patient would like information or [...] 01/26/2019 8:54 AM EST Plan of Treatment Health Maintenance Due Date Last Done Comments Medicare AWV 1956 Zoster Vaccines (1 of 2) 10/25/2007 Pneumococcal Vaccine: 50+ Years (2 of 2 - PCV) 06/03/2014 06/03/2013 Ophthalmology Exam 12/17/2017 12/17/2016, 1 , 12/17/2016, Additional history exists Urine Microalbumin 06/20/2018 06/20/2017, 0 03/20/2016, 12/14/2014 Colonoscopy 04/08/2021 04/08/2018, 04/0 10/2013, 08/30/2011 Hemoglobin A1C 02/13/2023 11/14/2022, 02/08, 12/27/2019, Additional history exists DTaP,Tdap,and Td Vaccines (2 - Td or Tdap) 06/04/2023 06/03/2013 Alcohol/Substance Use Screening 03/10/2024 11/14/2022 Depression Screening and Follow-Up 03/10/2024 11/14/2022 Health Care Proxy Review 03/10/2024 Social Drivers of Health Annual Screening 03/10/2024 Influenza Vaccine (#1) 2024 3, 10/16/2019, 12/23/2017, Additional history exists RSV Vaccine (60+ years old and patients) (1 - 1-dose 75+ series) 2032 Basic Metabolic Panel Discontinued 02/29/2020 , 10/28/2019, 01/14/2019, Additional history exists COVID-[address] Lung Cancer Screening (Baseline) Discontinued Hepatitis B Vaccines Aged Out No long er eligible based on patient's age to complete this topic Hepatitis C Screening Discontinued Procedures * Due to [place] [employer] law, this organization might not be sharing negative HIV tests. Procedure Name Priority Date/Time Associated Diagnosis Comments HEMOGLOBIN A1C Routine 11/14/2022 12:15 PM EDT Diabetes mellitus without complication BASIC METABOLIC PANEL Routine 02/29/2020 9:14 AM EST Combined hyperlipidemia COLONOSCOPY 04/08/2018 MICROALBUMIN, RANDOM URINE WITH CREATININE Routine 06/20/2017 12:00 AM EDT Type 2 diabetes mellitus without complication, without long-term current use of insulin DIABETES EYE EXAM Routine 06/05/2016 8:06 AM EDT from Last 3 Months or Most Recently Relevant to Health Maintenance Results * Due to [place] [employer] law, this organization might not be sharing negative HIV tests. * (ABNORMAL) Hemoglobin A1c (11/14/2022 12:15 PM EDT) Hemoglobin A1C 10.4(H) <5.7 % of total Hgb 11/14/2022 8:16 PM EDT [facility] Comment: For someone without known diabetes, a [...] (MG/DL) 252 mg/dL 11/14/2022 8:16 PM EDT [facility] eAG (MMOL/L) 13.9 mmol/L 11/14/2022 8:16 PM EDT [facility] Blood Structure of peripheral vein / Unknown 11/14/2022 12:15 PM EDT 11/14/2022 6:29 PM EDT us Albino Hernandez MD LAB BLOOD ORDERABLES Final Resul t [facility] [address] [facility] [address] Floor, [place] [address], [employer] [facility] [address] [place] [address] * (ABNORMAL) Basic Metabolic Panel (02/29/2020 9:14 AM EST) Glucose 191(H) 65 - 99 mg/dL 02/29/2020 5:29 PM [facility] Comment: Fasting reference interval For someone without known diabetes, a glucose value >125 mg/dL indicates that they may have diabetes and this should be confirmed with a follow-up test. BUN 22 7 - 25 mg/dL 02/29/2020 5:29 PM EST [facility] Creatinine 0.93 0.70 - 1.25 mg/dL 02/29/2020 5:29 PM [facility] Comment: For patients >49 years of age, the reference limit for Creatinine is approximately 13% higher for people identified as -Portuguese. eGFR Non- 88 > OR = 60 mL/min/1 .73m2 02/29/2020 5:29 PM EST [facility] eGFR 102 > OR = 60 mL/min/1 .73m2 02/29/2020 5:29 PM [facility] Bun/Creatinine Ratio NOT APPLICABLE 6 - 22 (calc) 02/29/2020 5:29 PM [facility] Sodium 139 135 - 146 mmol/L 02/29/2020 5:29 PM [facility] Potassium 4.4 3.5 - 5.3 mmol/L 02/29/2020 5:29 PM EST [email or web address] [facility] Chloride 101 98 - 110 mmol/L 02/29/2020 5:29 PM EST [email or web address] [facility] Carbon Dioxide 26 20 - 32 mmol/L 02/29/2020 5:29 PM EST [email or web address] [facility] Calcium 9.7 8.6 - 10.3 mg/dL 02/29/2020 5:29 PM EST [email or web address] [facility] Blood Structure of peripheral vein / Unknown 02/29/2020 9:14 AM EST 02/29/2020 4:14 PM EST Narrative [facility] - 02/29/2020 6:20 PM EST FASTING:YES Sandi Arias SPECIAL EDUCATION SUPERVISOR LAB BLOOD ORDERABLES Final Result [facility] [address] [facility] [address], [place] [address], [place] [phone] [email or web address] [facility] [address] [place] [address] * COLONOSCOPY (04/08/2018) Narrative Procedure Note Mayito [...] saturations were monitored continuously. The [id number]-[id number] OLYMPUS [id number] was introduced through the anus and advanced [...] 0 Note Initiated On: 04/08/2018 12:49 PM us Mayito Mccall MD [employer]ATION PROCEDURES Final Result * Microalbumin/Creatinine Urine Ratio, Random (06/20/2017 12:00 AM EDT) Creatinine, Random Urine 234 20 - 370 mg/dL 06/24/2017 4:47 PM EDT [facility] Microalbumin 0.4 mg/dL 06/24/2017 4:47 PM EDT [facility] Comment: Reference Range Not established Microalbumin/Crea tinine Ratio, Random Urine 2 <30 mcg/mg creat 06/24/2017 4:47 PM EDT [facility] Comment: The ADA defines abnormalities in [...] / Unknown 06/20/2017 06/24/2017 8:21 AM EDT us Sandi Arias NP LAB URINE ORDERABLES Final Result [facility] [address] [facility] [address], [place] [address], [place] [phone] [facility] [address], [place] [address], [place] [phone] * DIABETES EYE EXAM (06/05/2016 8:06 AM EDT) Eye Exam [id number] [facility] MANUAL RESULTS 06/05/2016 8:06 AM EDT us Historical Conversion Provider HEALTH MAINTENANC E Final Result [facility] MANUAL RESULTS from Last 3 Months or Most Recently Relevant to Health Maintenance Insurance MEDICARE [facility] Care Teams Nurse Clinician Relationship Specialty Start Date End Date Albino Hernandez MD [address] [place] [phone] PCP - General Family Medicine 11/14/22
--- OUTSIDE RECORDS SUMMARY | 2024-11-04 11:06 | XMS_ITS | Encounter Summary ---
Author Organization [facility] Address [address] [place] [address] Care Team Providers Care Mines Inspector Name Role Phone Albino Hernandez MD Primary Care Provider [phone] Encounter Details Date Type Department Care Team (Late st Contact Info) Description 06/05/2016 Abstract [facility] [place] [address] [place] [address] Danielle Acevedo MD [address] [place] [address] Social History Tobacco Use Types Packs/Day Years Used Date Smoking Tobacco: Never Assessed Sex and Gender Information Value Date Recorded Sex Assigned at Not on file Legal Sex Male 1:24 AM EDT Gender Identity Not on file Sexual Orientation Not on file documented as of this encounter Plan of Treatment Not on file documented as of this encounter Visit Diagnoses Not on filedocumented in this encounter Care Teams Mines Inspector Relationship Specialty Start Date End Date Albino Hernandez MD [address] [place] [address] PCP - General Family Medicine 11/14/22 documented as of this encounter
--- OUTSIDE RECORDS SUMMARY | 2024-11-04 11:06 | XMS_ITS | Clinical Summary ---
Author Organization [facility] Address [address] [facility] [address] [place] [address] Care Team Providers Care Flue Blower Name Role Phone Mami Jacob AIMEE Primary Care Provider [phone] Allergies No known active allergies Medications atorvastatin (Lipitor) 40 MG tabletIndications :Hyperlipidemia, unspecified hyperlipidemia type Take 1 tablet (40 mg) by mouth Once per day. 90 tablet 2 12/17/19 24 Active Blood Pressure Monitoring (Blood Pressure Cuff) miscIndications:E levated blood pressure reading 1 kit if needed each day (blood pressure). 1 each 12/17/19 24 Active Blood Glucose Monitoring Suppl (FreeStyle Blackstone Lite) w/Device kitIndications:Ty pe 2 diabetes mellitus without complication, without long-term current use of insulin ([facility]) Use to test blood sugar bid dx dm 1 kit 12/17/19 24 Active nicotine (Nicoderm, Step 3) 7 MG/24HR patchIndications: Tobacco use disorder APPLY 1 PATCH TOPICALLY TO THE SKIN IN THE MORNING *DO NOT SMOKE WHILE USING PATCH* 30 patch 04/09/19 25 Active nicotine polacrilex (Commit) 2 MG [...] per day. 30 tablet 11 08/24/19 25 06/16/ 2026 Active acetaminophen (Tylenol 8 Hour) 650 MG [...] complication, without long-term current use of insulin ([facility]) 1 Lancet if needed each day (as needed). 90 each 10/19/19 25 Active metFORMIN XR (Glucophage-XR) 500 MG 24 hr tabletIndications :Type 2 diabetes mellitus with other specified complication, without long-term current use of insulin ([facility]) Take 1 tablet (500 mg) by mouth 2 times daily. Do not crush, chew, or split. 180 tablet 3 10/20/19 25 2025 Active traZODone (Desyrel) 50 MG tablet TAKE 1 TABLET BY MOUTH AT BEDTIME 30 tablet 3 10/23/19 25 Active glucose blood test stripIndications: Type 2 diabetes mellitus without complication, without long-term current use of insulin (CMS/HCC) Use daily as needed for blood sugar, freestyle lite 100 each 12/19/19 24 2024 Discontinued(R eorder (will not trigger notification to Pharmacy)) traZODone (Desyrel) 50 MG tablet Take 1 tablet (50 mg) by mouth at bedtime. 30 tablet 3 04/19/19 25 2024 Discontinued Alcohol Sheets (Alcoh-Wipe) sheetIndications: Type 2 diabetes mellitus without complication, without long-term current use of insulin (CMS/HCC) Test daily before all meals/snacks and once before bedtime. 1 each 07/06/19 25 2024 Discontinued(R eorder (will not trigger notification to Pharmacy)) Lancets miscIndications:T ype 2 diabetes mellitus without complication, without long-term current use of insulin ([facility]) 1 Lancet if needed each day (as needed). 90 each 07/06/19 25 2024 Discontinued(R eorder (will not trigger notification to Pharmacy)) metFORMIN XR (Glucophage-XR) 500 MG 24 hr tabletIndications :Type 2 diabetes mellitus with other specified complication, without long-term current use of insulin ([facility]) Take 1 tablet (500 mg) by mouth 2 times daily. Do not crush, chew, or split. 180 tablet 3 08/24/19 25 2024 Discontinued(R eorder (will not trigger notification to Pharmacy)) metFORMIN XR (Glucophage-XR) 500 MG 24 hr tabletIndications :Type 2 diabetes mellitus with other specified complication, without long-term current use of insulin ([facility]) Take 1 tablet (500 mg) [...] ortho, Pt 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 management for FINISHING RANGE OPERATOR and care coordination Other insomnia 04/19/2024 Assessment & Plan (04/19/2024 9:53 AM EST): Pt reports previously was on a nightly pill Trazodone rx sent Low-level of literacy 12/17/2023 Assessment & Plan (12/17/2023 1:29 PM EDT): FINISHING RANGE OPERATOR sheet given to patient, Referral to case [...] (12/16/2023): Added automatically from request for surgery [id number] Type 2 diabetes mellitus wit hout complication, [...] Encounters Date Type Department Care Team Description 10/28/2024 9:45 AM EDT Office Visit [facility] [address] [place], [place] [id number] Ariane Garza OD Type 2 diabetes mellitus without ophthalmic manifestations (CMS/HCC) (Primary Dx); Combined forms of age-related cataract of both eyes; Presbyopia; Pterygium of both eyes; Arcus senilis of both eyes 10/28/2024 Travel 10/25/2024 Telephone [facility] [address] [place] [address] Mami Jacob NP 10/22/2024 Refill [facility] [address] [place] [address] Mami Jacob NP 10/20/2024 Telephone [facility] [address] [place] [phone] Mami Jacob NP Durable Medical Equipment 10/19/2024 11:30 AM EDT Office Visit [facility] [address] [place] [phone] Mami Jacob NP DM (diabetes mellitus) type II, controlled, with peripheral vascular disorder (CMS/HCC) (Primary Dx); Colon cancer screening; Type 2 diabetes mellitus with other specified complication, without long-term current use of insulin (CMS/HCC); Arthritis of left knee; Tobacco use disorder; Nicotine dependence, cigarettes, in remission; Healthcare maintenance 10/19/2024 Travel 10/18/2024 Refill [facility] [address] [place] [address] Mami Jacob NP Type 2 diabetes mellitus without complication, without long-term current use of insulin (CMS/HCC) 09/15/2024 Refill [facility] [address] [place] [address] Mami Jacob NP Pain in left knee 08/23/2024 Orders Only [facility] [address] [place] [phone] Mami Jacob NP Type 2 diabetes mellitus with other specified complication, without long-term current use of insulin (CMS/HCC) (Primary Dx); Primary hypertension; Chronic pain of left knee 08/19/2024 Travel 08/05/2024 9:30 AM EDT Clinical Support [facility] [address] [place] [phone] Davina Kaur, PharmD Tobacco use disorder (Primary Dx) from Last 3 Months Immunizations Immunization Administration Dates Next Due Influenza Quadrivalent Adjuvanted 11/16/2022 Influenza injectable quadriv alent IIV4 with preservative 12/23/2017 Influenza injectable quadrivalent preservative f ree 10/16/2019,01/02/2017 Influenza, High Dose Seasonal, Preservative Free 12/17/2023 Influenza, IIV3, injectable 11/08/2011 Influenza, seasonal, injectable, preservative fr ee 12/02/2015 Pneumococcal Polysaccharide PPSV23 06/03/2013 Tdap 06/03/2013 Family History Medical History Relation Name Comments Diabetes Mother Relation Name Status Comments Mother Social History Tobacco Use Types Packs/Day Years Used Date Smoking Tobacco: Some Days Cigarettes 0.5 40 Started: 10/19/1984 Smokeless Tobacco: Never Tobacco Cessation:Ready to Q uit: Not Asked; Counseling Given: Not Answered Passive Exposure Comments:Pt using the patches Alcohol [...] with others, in a hotel, in a retirement, living outside on the street, on a [...] 10/19/2024 11:02 AM EDT Plan of Treatment Health Maintenance Due Date Last Done Comments CT Colonography 1957 Colonoscopy 1957 Colorectal Cancer Screening 1957 FIT DNA/Cologuard 1957 FIT 1957 FOBT 1957 Sigmoidoscopy 1957 Hepatitis C Screening 10/25/1975 Lung Cancer Screening 10/25/2007 Zoster Vaccines (1 of 2) 10/25/2007 Pneumococcal Vaccine: 50+ Years (2 of 2 - PCV) 06/03/2014 06/03/2013 Diabetes: Urine Protein Screening 06/20/2018 06/20/2017 DTaP/Tdap/Td Vaccines (2 - Td or Tdap) 06/04/2023 06/03/2013 COVID-19 Vaccine ( season) 2023 Influenza Vaccine (#1) 2024 , 11/16/2022, 10/16/2019, Additional history exists SDOH Screening 12/09/2024 12/10/2023 Alcohol/Substance Use Screening 12/16/2024 12/17/2023 Depression Screening 12/16/2024 12/17/2023, 12/17/19 24 Diabetes: Hemoglobin A1C 01/19/2025 025, 07/19/2024, 03/17/2024, Additional history exists Diabetes: Foot Exam 10/19/2025 10/19/2024, 10/19/2024, 10/19/2024 Lipid Panel 10/19/2025 10/19/2024 Tobacco Screening 10/28/2025 10/28/2024 Eye Exam 10/28/2026 10/28/2024, 10/09, 10/28/2024, Additional history exists RSV Patients and Patients Aged 60 years [...] Procedure Name Priority Date/Time Associated Diagnosis Comments PSA, SCREEN Routine 10/19/2024 11:41 AM EDT Healthcare maintenance LIPID PANEL, STANDARD Routine 10/19/2024 11:41 AM EDT Mixed hyperlipidemia COMPREHENSIVE METABOLIC PANEL Routine 10/19/2024 11:41 AM EDT Type 2 diabetes mellitus without complication, without long-term current use of insulin ([facility]) POCT GLYCATED HEMOGLOBIN, TOTAL Routine 10/19/2024 11:37 AM EDT DM (diabetes mellitus) type II, controlled, with peripheral vascular disorder ([facility]) POCT GLUCOSE Routine 10/19/2024 11:36 AM EDT DM (diabetes mellitus) type II, controlled, with peripheral vascular disorder (CMS/[facility]) CBC WITH AUTO DIFFERENTIAL Routine 10/19/2024 11:11 AM EDT Elevated blood pressure reading from Last 3 Months Results * PSA, Screen (10/19/2024 11:41 AM EDT) PSA, Total 1.63 <0.05 - 4.0 ng/mL [facility] Comment:PSA methodology: Demi Brandon i ChemiluminescentMicroparticle Immunoassay (CMIA) Blood Venous blood specimen / Unknown 10/19/2024 11:41 AM EDT 10/19/2024 1:21 PM EDT us Mami Jacob NP LAB BLOOD ORDERABLES Final Resul t [facility] [address] [place] [phone] * (ABNORMAL) Lipid Panel, Standard (10/19/2024 11:41 AM EDT) Triglycerides 160(H) <150 mg/dL [facility] Comment:Desirable Triglyceri de: less than 150 mg/dLBorderline High Triglyceride 150-199 mg/dLHigh Triglyceride: 200-499 mg/dLVery High Triglyceride: greater than or equal to 5OO mg/dL Cholesterol 125 <200 mg/dL [facility] Comment:Desirable Cholestero l: less than 200 mg/dLBorderline High Cholesterol: 200-239 mg/dLHigh Cholesterol: greater than 239 mg/dL LDL Cholesterol Calculated 60 <100 mg/dL [facility] Comment:Desirable LDL: less than 100 mg/dLNear Optimal/Above Optimal LDL: 110- 129 mg/dLBorderline High LDL: 130-159 mg/dLHigh LDL: 160-189 mg/dLVery High LDL: greater than or equal to 190 mg/dL HDL Cholesterol 33(L) >40 mg/dL [facility] Comment:Desirable HDL: great er than 40 mg/dL Note: This HDL assay may give artificially low results in patients with liver disease. Blood Venous blood specimen / Unknown 10/19/2024 11:41 AM EDT 10/19/2024 1:21 PM EDT us Mami Jacob NP LAB BLOOD ORDERABLES Final Resul t [facility] [address] [place] [phone] * (ABNORMAL) Comprehensive Metabolic Panel (10/19/2024 11:41 AM EDT) Sodium 142 135 - 145 mmol/L [facility] Potassium 4.0 3.3 - 5.1 mmol/L [facility] Chloride 105 96 - 108 mmol/L [facility] Carbon Dioxide 29 22 - 29 mmol/L [facility] Anion Gap 12 12 - 20 [facility] Urea Nitrogen (BUN) 14 9 - 16 mg/dL [facility] Creatinine, Serum 0.84 0.5 - 1.4 mg/dL [facility] Estimated Glomerular Filt Rate >60 [facility] Comment:Chronic Kidney Disea se: Estimated GFR < 60 mL/min/1.74x9Duimlg Kidney Disease: Estimated GFR < 15 mL/min/1.73m2 Glucose 144(H) 60 - 115 mg/dL [facility] Calcium 9.2 8.4 - 10.2 mg/dL [facility] Bilirubin, Total 0.3 0.0 - 1.0 mg/dL [facility] Aspartate Amino Transferase 19 5 - 37 U/L [facility] Alanine Aminotransferase 18 0 - 40 U/L [facility] Total Protein 7.0 6.5 - 8.0 g/dL [facility] Albumin Level 4.5 3.5 - 5.0 g/dL [facility] Alkaline Phosphatase 100 39 - 117 U/L [facility] Blood Venous blood specimen / Unknown 10/19/2024 11:41 AM EDT 10/19/2024 1:21 PM EDT Mami Jacob SOCIOLOGY PROFESSOR LAB BLOOD ORDERABLES Final Resul t [facility] [address] [place] [phone] * (ABNORMAL) POCT HGB A1C (10/19/2024 11:37 AM EDT) Hemoglobin A1C 7.7(A) 4.0 - 5.7 % QC Media Lot # [id number] Lot# Expiration Date 62 Blood 10/19/2024 11:3 7 AM EDT Mami Jacob SOCIOLOGY PROFESSOR POINT OF CARE TEST ENTER/EDIT OR DERABLES Final Result * POCT Glucose (10/19/2024 11:36 AM EDT) Glucose Blood, POC 172 60 - 200 mg/dL [employer] Lot # [id number] Lot# Expiration Date 025 Blood Capillary blood specimen / Unknown 10/19/2024 11:36 AM EDT Mami Jacob SOCIOLOGY PROFESSOR POINT OF CARE TEST ENTER/EDIT OR DERABLES Final Result * (ABNORMAL) CBC auto differential (10/19/2024 11:11 AM EDT) White Blood Count 6.4 4.8 - 10.8 X10*3/uL [facility] Red Blood Count 4.20(L) 4.60 - 5.80 X10*6/uL [facility] Hemoglobin 12.7(L) 14.0 - 18.0 g/dl [facility] Hematocrit 37.8(L) 42.0 - 52.0 % [facility] Mean Corpuscular Volume 90.0 80.0 - 98.0 fL [facility] Mean Corpuscular Hemoglobin 30.2 27.0 - 33.0 pg [facility] Mean Corpuscular HGB Conc 33.6 31.0 - 36.0 g/dl [facility] Red Cell Distribution Width 13.7 11.0 - 16.0 % [facility] Platelet Count 369 160 - 400 X10*3/uL [facility] Mean Platelet Volume 9.8 9.4 - 12.4 fL [facility] Neutrophils Percent Auto 33.3(L) 45 - 73 % [facility] Imm Gran Pct Auto 0.2 0.0 - 0.4 % [facility] Lymphocytes Percent Auto 49.4(H) 20 - 40 % [facility] Monocytes Percent Auto 5.3 2 - 11 % [facility] Eosinophils Percent Auto 10.7(H) 0 - 4 % [facility] Basophils Percent Auto 1.1 0 - 2 % [facility] NRBC Pct Auto 0.0 0.0 - 0.2 /100WBC [facility] Neutrophils Absolute Auto 2.1 2.0 - 8.3 x10*3/uL [facility] Imm Gran Abs Auto 0.01 0.00 - 0.03 X10*3/uL [facility] Lymphocytes Absolute Auto 3.2 1.2 - 4.9 X10*3/uL [facility] Monocytes Absolute Auto 0.3 0.1 - 1.2 X10*3/uL [facility] Eosinophils Absolute Auto 0.7(H) 0.0 - 0.4 X10*3/uL [facility] Basophils Absolute Auto 0.1 0.0 - 0.2 X10*3/uL [facility] NRBC Abs Auto 0.000 0.0 - 0.012 X10*3/uL [facility] Blood Venous blood specimen / Unknown 10/19/2024 11:11 AM EDT 10/19/2024 1:21 PM EDT us Mami Jacob NP LAB BLOOD ORDERABLES Final Resul t [facility] [address] [place] [phone] from Last 3 Months [facility] [phone] Care Teams Flue Blower Relationship Specialty Start Date End Date Mami Jacob NP [address] [place] [phone] PCP - General Family Medicine 12/17/23
== END 2024-11-04 10:25 | disposition home or self-care (01) ==
LOC: HO.HOS 09:56
PROVIDERS: PCP Nurse Practitioner Family; Visit Provider Orthopaedic Surgery
DX: S83.242A Other tear of medial meniscus, current injury, left knee, initial encounter (principal)
CPT/HCPCS: 99213; G2211

== ENCOUNTER → 2024-11-04 09:56 | Outpatient (BNVA) | payer MEDICARE, MEDICAID, SELFPAY | PROVIDERS: PCP Nurse Practitioner Family; Visit Provider Orthopaedic Surgery | DX: S83.242A Other tear of medial meniscus, current injury, left knee, initial encounter (principal) | CPT/HCPCS: 99212 ==

== ENCOUNTER 2025-01-14 08:49 | Outpatient (AMB) | payer MEDICARE, MEDICAID, SELFPAY ==
--- NOTE | 2025-01-14 07:46 | A.OFFVIS_ITS ---
Intake Visit Reasons: LDCT Allergies No Known Allergies Allergy (Verified 11/04/24 10:04) HPI HPI LDCT: Details: Initial visit for this 69yo smoker with a 30PYH. Patient started smoking at age 10 for 59 years at 1/2ppd. Currently at 1/4ppd. . Reports marijuana use. Denies second hand smoke exposure. Denies exposure to chemicals or substances like asbestos. . Denies known family history of lung cancer. Denies personal history of cancers. Denies chest CT in last year. . Denies recent travel outside the [place]. Denies recent respiratory illness or recent hospitalization for respiratory issues. Denies testing positive for COVID. Admits receiving COVID Vaccine x 2. . Denies fever, chills, new/worsening cough, hemoptysis, hoarseness or dysphagia. Denies significant chest pain, significant dyspnea or unintentional weight loss. Patient Lung Cancer Screening Questionnaire reviewed with patient by provider. . Shared Decision Making Completed. Patient meets criteria. Discussed in detail with patient, the risk vs benefit of LDCT screening. Patient consents to proceed with scan. Discussed smoking cessation. [facility] Medical History (Updated 01/14/25 @ 09:13 by No Pal PA-C) Nicotine dependence, cigarettes, uncomplicated Type 2 diabetes mellitus Hyperlipidemia Hypertension Surgical History (Updated 01/14/25 @ 09:12 by No Pal PA-C) No pertinent past surgical history Social History (Updated 01/14/25 @ 09:11 by No Pal PA-C) Patient Tobacco Use Status: Current everyday Tobacco user Years Smoked: (onset 10yo, 1/2ppd x 59yrs, now 1/4ppd, 30pyh) Current occupational status: retired Assessment & Plan Assessment & Plan (1) Nicotine dependence, cigarettes, uncomplicated: Comment: (onset 10yo, 1/2ppd x 59yrs, now 1/4ppd, 30pyh) Code(s): F17.210 - Nicotine dependence, cigarettes, uncomplicated Category: Medical Plan: - SDM visit completed today in office. - Patient meets criteria for LDCT for lung cancer screening purposes and is asymptomatic. - Smoking cessation counseling offered. Patients can always call [phone]. - Will arrange for a LDCT scan of the chest for screening purposes at [facility] [place]. - Risks, benefits, and alternatives were discussed in detail and the patient agrees to proceed. - Risks discussed include but are not limited to: radiation exposure, anxiety during testing and while awaiting results, false negatives, false positives and possibility of additional intervention such as further imaging or surgical procedures for benign disease. - Benefits are obviously detection of lung cancer at an early stage which can lead to improved outcomes. - Discussed the importance of screening program compliance with adherence to yearly LDCT scan as scheduled - or sooner interval scans for personalized screening regimen. - Discussed follow up plan. Our office will send a letter discussing results and if needed set up phone call and office visit based on CT findings. - Patient educated on results categorization and the management decisions for suspicious findings potentially found on the screening LDCT scan. Any patient with a Lung RADS score of 3 or 4 will be reviewed by a multidisciplinary team at [facility] [place] to form a plan of action in regards to scan findings. - If further work up is warranted for a suspicious lung finding this will be followed by the Lung Cancer Screening program in conjunction with the Thoracic Surgery Department at [facility] [place]. - A copy of the office note and LDCT will be sent to the patient's PCP - as well as documentation on any associated further plans of care. - Incidental findings on LDCT are the PCP's responsibility. These findings are indicated with an S finding on the LDCT Assessment. A note discussing the findings will be sent to the PCP who is then responsible for further management. - All questions answered.? Plan OF NOTE FOR PCP: The USPTF recommends all men age 65-75yo who have ever smoked have a one-time abdominal ultrasound to screen for AAA - recommend if not done prior Coding Level of Care Code Lung Cancer Screening G0296 Diagnoses Nicotine dependence, cigarettes, uncomplicated F17.210
== END 2025-01-14 09:30 | disposition home or self-care (01) ==
LOC: HO.HPS 08:49
PROVIDERS: PCP Nurse Practitioner Family; Referring Provider Nurse Practitioner Family; Visit Provider Physician Assistant Medical
DX: F17.210 Nicotine dependence, cigarettes, uncomplicated (principal)
CPT/HCPCS: G0296

== ENCOUNTER 2025-01-14 09:15 | Outpatient (REF) | payer MEDICARE, MEDICAID, SELFPAY ==
--- OUTSIDE RECORDS SUMMARY | 2005-05-12 19:00 | XMS_ITS | Continuity of Care Document ---
Author Organization gisella [facility] Address [address] [address],[address] [place] [address] Phone Care Team Providers Care County Extension Agent Name Role Phone Z-Converted, Provider Unavailable Unavailabl e Medications Medication Instructions Dosage Effective Dates (start - stop) Status Comments gemfibrozil 600 mg Tab 1 Two Times A Day - Active perphenazine-amitriptyl ine 2 mg-25 mg Tab 1 Two Times A Day - Active mirtazapine 15 mg Tab 1 QHS - Acti ve Advance Directives Directive Yes / No Effective Date File Name No Information Encounters Encounter Description Practice Location Reason(s) For Visit Diagnoses Date Provider Providers Copied on Encounter gisella [facility], [address] [place] [address],[address], [id number], tel:[phone] Converted Locations No Information 6 Z-Convert ed Provider. . Antonino [facility], [address] [place] [address],[address] [address], [place], [place], [id number], tel:[phone] Converted Locations No Information 6 Z-Convert ed Provider. . [facility], [address] [place] [address],[facility] [address], [place], [place], [id number], tel:[phone] [facility] hypercholestero lemiaDysthymic disorder 6 Z-Convert ed Provider. . Family History Family Member Type Diagnosis Age At Onset No Information Payers Payer name Insurance type Covered green party ID Authoriza tion(s) No Information Social History Type Description Quantity Date Captured Comments Sex Male Smoking Status No Information Chief Complaint And Reason For Visit No Information Reason For Referral Reason For Referral No Information History Of Present Illness Encounter Date Complaint History Of Prese nt Illness No Information Functional Status Date Functional Assessmen t No Information Instructions Date Instruction Additional Infor mation No Information Assessments Type Assessment Date No Information Patient Care Teams Name Effective Dates (start - stop) Status Members No Information
--- NOTE | ~2025-01-14 | CT_ITS ---
EXAMINATION: CT LUNG SCREENING HISTORY: Z87.891 - Personal history of nicotine dependence TECHNIQUE: Low dose axial images were obtained from the sternal notch to upper abdomen without IV contrast per standard departmental protocol. Sagittal and coronal reformatted images were also obtained and reviewed. One or more of the following techniques was used for dose reduction: Automated exposure control, adjustment of the mA and/or kV according to patient size, use of iterative reconstruction technique. DLP: 51 mGy-cm COMPARISON: There are no prior studies available for comparison. FINDINGS: Lung nodules: Mild paraseptal emphysema. Mild biapical pleural and parenchymal scarring. Probable mild airways disease with mild bronchial wall thickening and increased peribronchial attenuation in the anterior right upper and middle lobes. 4 mm peripheral or subpleural right lower lobe nodule axial image 93 series 5. 5 x 6 mm right lower lobe nodule axial image 128 series 5. Minimal probable scarring or subsegmental atelectasis in the right lower lobe axial image 139 series 5. 3 mm left upper lobe nodule axial image 72 series 5. A 3 mm left upper lobe nodule axial image 78 series 5. 3 mm left upper lobe nodule axial image 80 series 5. 4 mm left upper lobe nodule axial image 88 series 5. 4 mm left lower lobe nodule axial image 95 series 5. A 4 mm peripheral or subpleural left lower lobe nodule adjacent to to the diaphragmatic pleural surface axial image 124 series. Emphysema: mild Coronary Calcification: mild Aortic Arch Calcification: mild Potentially Significant Incidentals : none Additional Chest Findings: There is no pleural or pericardial effusion. No mediastinal , hilar or axillary lymphadenopathy is identified. Visualized upper abdomen: Diverticulosis of the colon. Bones. Degenerative changes of the spine and shoulders. CT/CT lung screening IMPRESSION: Mild emphysema. Mild biapical pleural parenchymal scarring. Probable mild airways disease in the anterior right upper and right middle lobes. Small bilateral pulmonary nodules largest measuring 6 mm in the right lower lobe. LUNG-RADS ASSESSMENT: Lung-RADS 3: Probably Benign MANAGEMENT: 6 month LDCT Category S: N/A Electronically signed by: Magalis Barber MD 01/14/2025 10:40 AM [facility]
--- OUTSIDE RECORDS SUMMARY | 2025-01-14 10:26 | XMS_ITS | Encounter Summary ---
Author Organization [facility] Address [address] [place] [address] Care Team Providers Care Clarifier Name Role Phone Mami Jacob Primary Care Provider [phone] Encounter Details Date Type Department Care Team (Late st Contact Info) Description 11/09/2024 Transcribe Orders [facility] Physician Referral Services [address] [place] [address] Nidia Mami [facility] [address] [place] [address] Social History Tobacco Use Types Packs/Day Years Used Date Smoking Tobacco: Some Days Cigarettes Smokeless Tobacco: Never Comments:would be interested in using the patch [...] file Not on file Not on file documented as of this encounter Plan of Treatment Not on file documented as of this encounter Visit Diagnoses Not on filedocumented in this encounter Care Teams Clarifier Relationship Specialty Start Date End Date Mami Jacob [address] [place] [address] PCP - General Family Medicine 11/09/24 documented as of this encounter
--- OUTSIDE RECORDS SUMMARY | 2025-01-14 10:26 | XMS_ITS | Encounter Summary ---
Author Organization [employer] Address [address] [facility] 7t [place] [address] Care Team Providers Care Hotel Service Supervisor Name Role Phone Mami Jacob NP Primary Care Provider [phone] Reason for Visit * Reason Comments Med Refill Encounter Details Date Type Department Care Team ([facility] st Contact Info) Description 01/09/2025 Refill [facility] [address] [place] [address] Mami Jacob NP [address] [place] [address] Type 2 diabetes mellitus without complication, without long-term current use of insulin (HCC); Hyperlipidemia, unspecified hyperlipidemia type Social History Tobacco Use Types Packs/Day Years Used Date Smoking Tobacco: Some Days Cigarettes 0.5 40.2 Started: 10/19/1984 Smokeless Tobacco: Never Passive Exposure Comments:Pt using the patches Alcohol [...] with others, in a hotel, in a jail, living outside on the street, on a [...] the past 12 months, has t he [employer], gas, oil or water company threatened to [...] Orientation Straight 06/20/2023 7: 05 PM EDT documented as of this encounter Plan of Treatment Upcoming Encounters Date Type Department Care Team (Late st Contact Info) Description 01/24/2025 11:15 AM EST Office Visit [facility] [address] [place] [address] Mami Jacob NP [address] [place] [address] 08/19/2025 9:00 AM EDT Medication Management [facility] [address] [place] [address] Janneth Montalvo, PharmD [address] [place] [address] documented as of this encounter Visit Diagnoses Diagnosis Type 2 diabetes mellitus without complication, without long-term current use of insulin (HCC) Hyperlipidemia, unspecified hyperlipidemia type documented in this encounter Additional Health Concerns Assessment Noted Time PHQ-9 Depression Total Score: 0 12/17/19 24 9:03 AM EDT documented as of this encounter Care Teams Hotel Service Supervisor Relationship Specialty Start Date End Date Mami Jacob NP [address] [place] [address] PCP - General Family Medicine 12/17/23 documented as of this encounter
--- OUTSIDE RECORDS SUMMARY | 2025-01-14 10:26 | XMS_ITS | Encounter Summary ---
Author Organization [employer] Address [address] [facility] 7t [place] [address] Care Team Providers Care Diesel Bus Mechanic Name Role Phone Mami Jacob AIMEE Primary Care Provider [phone] Reason for Referral * Consultation (Routine) - Authorized Specialty Diagnoses / Procedures Referred By Fidel tripathi Referred To Contact Pharmacy Diagnoses Primary hypertension Alisia August MD [address] [place] [address] Phone: tel: fax: Referral ID Status Reason Start Date Expiration Date Visits Requested Visits Authorized [id number] Authorized Continuity of Care 12/13/2024 12/13/2025 6 6 Encounter Details Date Type Department Care Team ([facility] st Contact Info) Description 12/09/2024 Orders Only [facility] [address] [place] [address] Alisia August MD [address] [place] [address] Primary hypertension (Primary Dx) Social History Tobacco Use Types Packs/Day Years [...] with others, in a hotel, in a snf, living outside on the street, on a [...] Description 01/24/2025 11:15 AM EST Office Visit [facility] [address] [place] [address] Mami Jacob NP [address] [place] [address] 08/19/2025 9:00 AM EDT Medication Management [facility] [address] [place] [phone] Janneth Montalvo, RayD [address] [place] [address] Scheduled Referrals Name Type Priority Associated Diagnoses Orde r Schedule Referral to Pharmacy MTM Outpatient Referral Routine Primary hypertension Ordered: 12/13/2024 documented as of this encounter Visit Diagnoses Diagnosis Primary hypertension- Primary Unspecified essential hypertension documented in this encounter Additional Health Concerns Assessment Noted Time PHQ-9 Depression Total Score: 0 12/17/19 9:03 AM EDT documented as of this encounter Care Teams Diesel Bus Mechanic Relationship Specialty Start Date End Date Mami Jacob NP [address] [place] [phone] PCP - General Family Medicine 12/17/23 documented as of this encounter
--- OUTSIDE RECORDS SUMMARY | 2025-01-14 10:26 | XMS_ITS | Clinical Summary ---
Author Organization [employer] Address [address] [facility] 7t [place] [address] Care Team Providers Care Cook Helper Meat Name Role Phone Mami Jaocb AIMEE Primary Care Provider [phone] Allergies No known active allergies Medications Blood Pressure Monitoring (Blood Pressure Cuff) miscIndications:E levated blood pressure reading 1 kit if needed each day (blood pressure). 1 each 12/17/19 24 Active Blood Glucose Monitoring Suppl ([employer] [place] Lite) w/Device kitIndications:Ty pe 2 diabetes mellitus without complication, without long-term current use of insulin (HCC) Use to test blood sugar bid dx [...] 30 tablet 11 08/24/19 25 026 Active acetaminophen (Tylenol 8 Hour) 650 MG ER tabletIndications :Pain in left knee TAKE 1 TABLET BY MOUTH TWICE DAILY IN THE MORNING AND AT BEDTIME NEEDED FOR MILD PAIN. DO NOT BREAK, CRUSH, DISSOLVE OR CHEW. 60 tablet 2 09/16/19 25 Active Alcohol Sheets (Alcoh-Wipe) sheetIndications: Type 2 diabetes mellitus without complication, without long-term current use of insulin (HCC) Test daily before all meals/snacks and once before bedtime. 1 each 10/19/19 25 Active glucose blood test stripIndications: Type 2 diabetes mellitus without complication, without long-term current use of insulin (HCC) Use daily as needed for blood sugar, freestyle lite 100 each 1 10/19/19 25 026 Active metFORMIN XR (Glucophage-XR) 500 MG 24 hr tabletIndications :Type 2 diabetes mellitus with other specified complication, without long-term current use of insulin (HCC) Take 1 tablet (500 mg) by mouth 2 times daily. Do not crush, chew, or split. 180 tablet 3 10/20/19 25 026 Active traZODone (Desyrel) 50 MG tablet TAKE 1 TABLET BY MOUTH AT BEDTIME 30 tablet 3 10/23/19 25 Active Alcohol Swabs (Alcohol Prep) 70 % padsIndications:T ype 2 diabetes mellitus without complications (HCC) USE DIRECTED TO TEST BLOOD SUGAR BEFORE MEALS / SNACKS AND BEFORE BEDTIME 100 each 3 12/01/19 25 Active TRUEplus Lancets 33G miscIndications:T ype 2 diabetes mellitus without complication, without long-term current use of insulin (HCC) USE DIRECTED TO TEST BLOOD SUGAR EVERY DAY NEEDED 100 each 3 01/11/20 25 Active atorvastatin (Lipitor) 40 MG tabletIndications :Hyperlipidemia, unspecified hyperlipidemia type TAKE 1 TABLET BY MOUTH EVERY MORNING 90 tablet 1 01/11/20 25 Active atorvastatin (Lipitor) 40 MG tabletIndications :Hyperlipidemia, unspecified hyperlipidemia type Take 1 tablet (40 mg) by mouth Once per day. 90 tablet 2 12/17/19 24 025 Discontinued Lancets miscIndications:T ype 2 diabetes mellitus without complication, without long-term current use of insulin (HCC) 1 Lancet if needed each day (as needed). 90 each 10/19/19 25 025 Discontinued Active Problems Problem Noted Date [...] ortho, Pt 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 management for KETTLEMAN and care coordination Other insomnia 04/19/2024 Assessment & Plan (04/19/2024 9:53 AM EST): Pt reports previously was on a nightly pill Trazodone rx sent Low-level of literacy 12/17/2023 Assessment & Plan (12/17/2023 1:29 PM EDT): KETTLEMAN sheet given to patient, Referral to case [...] (12/16/2023): Added automatically from request for surgery [id number] Type 2 diabetes mellitus wit hout complication, [...] Encounters Date Type Department Care Team Description 01/09/2025 Refill [facility] [address] [place] [address] Mami Jacob NP Type 2 diabetes mellitus without complication, without long-term current use of insulin (HCC); Hyperlipidemia, unspecified hyperlipidemia type 12/09/2024 11:30 AM EDT Office Visit [facility] [address] [place] [address] Amanda Everett, OD Presbyopia (Primary Dx) 12/09/2024 Orders Only [facility] [address] [place] [address] Alisia August MD Primary hypertension (Primary Dx) 11/29/2024 Refill [facility] [address] [place] [address] Mami Jacob NP Type 2 diabetes mellitus without complications (CMS/HCC) 10/28/2024 9:45 AM EDT Office Visit [facility] [address] [place] [address] Ariane Garza, OD Type 2 diabetes mellitus without ophthalmic manifestations (CMS/HCC) (Primary Dx); Combined forms of age-related cataract of both eyes; Presbyopia; Pterygium of both eyes; Arcus senilis of both eyes 10/28/2024 [facility] [address] [place] [address] Mami Jacob NP 10/22/2024 Refill [facility] [address] [place] [address] Mami Jacob NP 10/20/[address] [address] Mami Jacob NP Durable Medical Equipment 10/19/2024 11:30 AM EDT Office Visit [facility] [address] [place] [address] Mami Jacob NP DM (diabetes mellitus) type II, controlled, with peripheral vascular disorder (CMS/HCC) (Primary Dx); Colon cancer screening; Type 2 diabetes mellitus with other specified complication, without long-term current use of insulin (CMS/HCC); Arthritis of left knee; Tobacco use disorder; Nicotine dependence, cigarettes, in remission; Healthcare maintenance 10/19/2024 Travel 10/18/2024 Refill [facility] [address] [place] [address] Mami Jacob NP Type 2 diabetes mellitus [...] 0.5 40.2 Started: 10/19/1984 Smokeless Tobacco: Never Tobacco Cessation:Ready [...] with others, in a hotel, in a mcc, living outside on the street, on a [...] 11:15 AM EST Office Visit [facility] [address] [place] [address] Mami Jacob, AIMEE [address] [place] [address] 08/19/2025 9:00 AM EDT Medication Management [facility] [address] [place] [address] Janneth Montalvo PharmD [address] [employer], [place] [phone] Health Maintenance Due Date Last Done Comments CT Colonography 1957 Colonoscopy 1957 Colorectal Cancer Screening 1957 FIT DNA/Cologuard 1957 FIT 1957 FOBT 1957 Sigmoidoscopy 1957 Alcohol/Substance Use Screening 1969 Hepatitis C Screening 10/25/1975 Lung Cancer Screening 10/25/2007 Zoster Vaccines (1 of 2) 10/25/2007 Pneumococcal Vaccine: 50+ Years (2 of 2 - PCV) 06/03/2014 06/03/2013 Diabetes: Urine Protein Screening 06/20/2018 06/20/2017 DTaP/Tdap/Td Vaccines (2 - Td or Tdap) 06/04/2023 06/03/2013 COVID-19 Vaccine ( - season) 2024 Influenza Vaccine (#1) 2024 , 11/16/2022, 10/16/2019, Additional history exists SDOH Screening 12/09/2024 12/10/2023 Depression Screening 12/16/2024 12/17/2023, 12/17/19 24 Diabetes: [...] without long-term current use of insulin (CMS/HCC) POCT GLYCATED HEMOGLOBIN, TOTAL Routine 10/19/2024 11:37 AM EDT DM (diabetes mellitus) type II, controlled, with peripheral vascular disorder (CMS/HCC) POCT GLUCOSE Routine 10/19/2024 11:36 AM EDT DM (diabetes mellitus) type II, controlled, with peripheral vascular disorder (CMS/HCC) CBC WITH AUTO DIFFERENTIAL Routine 10/19/2024 11:11 AM EDT Elevated blood pressure reading from Last 3 Months Results * PSA, Screen (10/19/2024 11:41 AM EDT) PSA, Total 1.63 <0.05 - 4.0 ng/mL [facility] Comment:PSA methodology: Abb radha Brandon i ChemiluminescentMicroparticle Immunoassay (CMIA) Blood Venous blood specimen / Unknown 10/19/2024 11:41 AM EDT 10/19/2024 1:21 PM EDT us Mami Jacob SMALL PARTS ASSEMBLER LAB BLOOD ORDERABLES Final Resul t [facility] [address] [place] [phone] * (ABNORMAL) Lipid Panel, Standard (10/19/2024 11:41 AM EDT) Triglycerides 160(H) <150 mg/dL [facility] Comment:Desirable Triglyceri de: less than 150 mg/dLBorderline High Triglyceride 150-199 mg/dLHigh Triglyceride: 200-499 mg/dLVery High Triglyceride: greater than or equal to 5OO mg/dL Cholesterol 125 <200 mg/dL [facility] Comment:Desirable Cholestero l: less than 200 mg/dLBorderline High Cholesterol: 200-239 mg/dLHigh Cholesterol: greater than 239 mg/dL LDL Cholesterol Calculated 60 <100 mg/dL [facility] Comment:Desirable LDL: less than 100 mg/dLNear Optimal/Above Optimal LDL: 110- 129 mg/dLBorderline High LDL: 130-159 mg/dLHigh LDL: 160-189 mg/dLVery High LDL: greater than or equal to 190 mg/dL HDL Cholesterol 33(L) >40 mg/dL [facility] Comment:Desirable HDL: great er than 40 mg/dL Note: This HDL assay may give artificially low results in patients with liver disease. Blood Venous blood specimen / Unknown 10/19/2024 11:41 AM EDT 10/19/2024 1:21 PM EDT us Mami Jacob SMALL PARTS ASSEMBLER LAB BLOOD ORDERABLES Final Resul t [facility] [address] [place] [phone] * (ABNORMAL) Comprehensive Metabolic Panel (10/19/2024 11:41 AM EDT) Sodium 142 135 - 145 mmol/L [facility] Potassium 4.0 3.3 - 5.1 mmol/L [facility] Chloride 105 96 - 108 mmol/L [facility] Carbon Dioxide 29 22 - 29 mmol/L [facility] Anion Gap 12 12 - 20 [facility] Urea Nitrogen (BUN) 14 9 - 16 mg/dL [facility] Creatinine, Serum 0.84 0.5 - 1.4 mg/dL [facility] Estimated Glomerular Filt Rate >60 [facility] Comment:Chronic Kidney Disea se: Estimated GFR < 60 mL/min/[id number] Kidney Disease: Estimated GFR < 15 mL/min/1.73m2 Glucose 144(H) 60 - 115 mg/dL [facility] Calcium 9.2 8.4 - 10.2 mg/dL [facility] Bilirubin, Total 0.3 0.0 - 1.0 mg/dL [facility] Aspartate Amino Transferase 19 5 - 37 U/L [facility] Alanine Aminotransferase 18 0 - 40 U/L [facility] Total Protein 7.0 6.5 - 8.0 g/dL [facility] Albumin Level 4.5 3.5 - 5.0 g/dL [facility] Alkaline Phosphatase 100 39 - 117 U/L [facility] Blood Venous blood specimen / Unknown 10/19/2024 11:41 AM EDT 10/19/2024 1:21 PM EDT Mami Jacob NP LAB BLOOD ORDERABLES Final Resul t [facility] [address] [place] [phone] [phone] * (ABNORMAL) POCT HGB A1C (10/19/2024 11:37 AM EDT) Hemoglobin A1C 7.7(A) 4.0 - 5.7 % QC Media Lot # [id number] Lot# Expiration Date Blood 10/19/2024 11:3 7 AM EDT Mami Jacob SMALL PARTS ASSEMBLER POINT OF CARE TEST ENTER/EDIT OR DERABLES Final Result * POCT Glucose (10/19/2024 11:36 AM EDT) Pathologist [facility] Glucose Blood, POC 172 60 - 200 mg/dL [employer] Lot # [id number] Lot# Expiration Date Blood Capillary blood specimen / Unknown 10/19/2024 11:36 AM EDT Mami Jacob SMALL PARTS ASSEMBLER POINT OF CARE TEST ENTER/EDIT OR DERABLES Final Result * (ABNORMAL) CBC auto differential (10/19/2024 11:11 AM EDT) White Blood Count 6.4 4.8 - 10.8 X10*3/uL [facility] Red Blood Count 4.20(L) 4.60 - 5.80 X10*6/uL [facility] Hemoglobin 12.7(L) 14.0 - 18.0 g/dl [facility] Hematocrit 37.8(L) 42.0 - 52.0 % [facility] Mean Corpuscular Volume 90.0 80.0 - 98.0 fL [facility] Mean Corpuscular Hemoglobin 30.2 27.0 - 33.0 pg [facility] Mean Corpuscular HGB Conc 33.6 31.0 - 36.0 g/dl [facility] Red Cell Distribution Width 13.7 11.0 - 16.0 % [facility] Platelet Count 369 160 - 400 X10*3/uL [facility] Mean Platelet Volume 9.8 9.4 - 12.4 fL [facility] Neutrophils Percent Auto 33.3(L) 45 - 73 % [facility] Imm Gran Pct Auto 0.2 0.0 - 0.4 % [facility] Lymphocytes Percent Auto 49.4(H) 20 - 40 % [facility] Monocytes Percent Auto 5.3 2 - 11 % [facility] Eosinophils Percent Auto 10.7(H) 0 - 4 % [facility] Basophils Percent Auto 1.1 0 - 2 % [facility] NRBC Pct Auto 0.0 0.0 - 0.2 /100WBC [facility] Neutrophils Absolute Auto 2.1 2.0 - 8.3 x10*3/uL [facility] Imm Gran Abs Auto 0.01 0.00 - 0.03 X10*3/uL [facility] Lymphocytes Absolute Auto 3.2 1.2 - 4.9 X10*3/uL [facility] Monocytes Absolute Auto 0.3 0.1 - 1.2 X10*3/uL [facility] Eosinophils Absolute Auto 0.7(H) 0.0 - 0.4 X10*3/uL [facility] Basophils Absolute Auto 0.1 0.0 - 0.2 X10*3/uL [facility] NRBC Abs Auto 0.000 0.0 - 0.012 X10*3/uL [facility] Blood Venous blood specimen / Unknown 10/19/2024 11:11 AM EDT 10/19/2024 1:21 PM EDT us Mami Jacob NP LAB BLOOD ORDERABLES Final Resul t [facility] [address] [place] [phone] [phone] from Last 3 Months Insurance [facility] STANDARD MEDICARE Care Teams Cook Helper Meat Relationship Specialty Start Date End Date Mami Jacob NP [address] [place] [phone] PCP - General Family Medicine 12/17/23
--- OUTSIDE RECORDS SUMMARY | 2025-01-14 10:26 | XMS_ITS | Clinical Summary ---
Author Organization [facility] Address [address] [place] [address] Care Team Providers Care Onyx Chip Terrazzo Worker Name Role Phone Mami Jacob Primary Care Provider Allergies No known active allergies Medications Freestyle lancets 28 gaugeIndications:DM type 2 with diabetic mixed hyperlipidemia Use to test 1 times daily. 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 In Vitro USE 1 STRIP TWICE A DAY DX CODE E11.9 100 strip 3 8 Active FREESTYLE LITE METER meterIndications:Ot her specified diabetes mellitus without complication, without long-term current use of insulin Use meter to check sugar BID Dx [...] (01/02/2018): Added automatically from request for surgery [id number] Type 2 diabetes mellitus wit hout complication, without long-term current use of insulin 09/19/2017 Male erectile disorder 04/08/2011 Hyperlipidemia 04/08/2011 Resolved Problems Problem Noted Date Diagnosed Date Resolved Date Acute pain of both shoulders 12/29/2017 09/24/2018 Anal polyp 10/10/2017 09/24/2018 Overview (10/10/2017): Added automatically from request for surgery [id number] Fatigue 11/27/2016 09/19/2017 Derangement of medial meniscus 12/22/2015 03/21/2017 Pain in knee 12/12/2015 03/21/2017 Sciatica 12/06/2015 03/21/2017 Diabetes mellitus 12/14/2014 09/19/2017 Nonspecific abnormal finding 06/09/2013 09/19/2017 Encounters Date Type Department Care Team Description 11/09/2024 Transcribe Orders [facility] [address] [place] [address] Mami Jacob from Last 3 Months Immunizations Immunization Administration Dates Next Due Influenza, [...] 03/10/2024 11/14/2022 Depression Screening and Follow-Up 03/10/2024 Health Care Proxy Review 03/10/2024 Social Drivers [...] C Screening Discontinued Procedures * Due to [employer] law, this organization might not be sharing [...] to Health Maintenance Results * Due to [place] [employer] law, this organization might not be sharing negative HIV tests. * (ABNORMAL) Hemoglobin A1c (11/14/2022 12:15 PM EDT) Hemoglobin A1C 10.4(H) <5.7 % of total Hgb 11/14/2022 8:16 PM EDT [facility] Comment: For someone without known diabetes, a [...] (MG/DL) 252 mg/dL 11/14/2022 8:16 PM EDT [facility] eAG (MMOL/L) 13.9 mmol/L 11/14/2022 8:16 PM EDT [facility] Blood Structure of peripheral vein / Unknown 11/14/2022 12:15 PM EDT 11/14/2022 6:29 PM EDT us Albino Hernandez MD LAB BLOOD ORDERABLES Final Resul t [facility] [address] [facility] [address], [place] [address], [employer] [facility] [address] [place] [address] * (ABNORMAL) Basic Metabolic Panel (02/29/2020 9:14 AM EST) Glucose 191(H) 65 - 99 mg/dL 02/29/2020 5:29 PM [employer] Comment: Fasting reference interval For someone without known diabetes, a glucose value >125 mg/dL indicates that they may have diabetes and this should be confirmed with a follow-up test. BUN 22 7 - 25 mg/dL 02/29/2020 5:29 PM EST [facility] Creatinine 0.93 0.70 - 1.25 mg/dL 02/29/2020 5:29 PM [facility] Comment: For patients >49 years of age, the reference limit for Creatinine is approximately 13% higher for people identified as -Fijian. eGFR Non- 88 > OR = 60 mL/min/1 .73m2 02/29/2020 5:29 PM [facility] eGFR 102 > OR = 60 mL/min/1 .73m2 02/29/2020 5:29 PM [facility] Bun/Creatinine Ratio NOT APPLICABLE (calc) 02/29/2020 5:29 PM [facility] Sodium 139 135 - 146 mmol/L 02/29/2020 5:29 PM EST [facility] Potassium 4.4 3.5 - 5.3 mmol/L 02/29/2020 5:29 PM EST [facility] Chloride 101 98 - 110 mmol/L 02/29/2020 5:29 PM EST [facility] Carbon Dioxide 26 20 - 32 mmol/L 02/29/2020 5:29 PM EST [facility] Calcium 9.7 8.6 - 10.3 mg/dL 02/29/2020 5:29 PM EST [facility] Blood Structure of peripheral vein / Unknown 02/29/2020 9:14 AM EST 02/29/2020 4:14 PM EST Narrative [facility] - 02/29/2020 6:20 PM EST FASTING:YES Sandi Arias LAB BLOOD ORDERABLES Final Result [facility] [address] [facility] [address], [place] [address], [facility] [employer] [facility] [address] [place] [address] * COLONOSCOPY (04/08/2018) Narrative Procedure Note Mayito [...] saturations were monitored continuously. The PCF-[id number] OLYMPUS [id number] was introduced through the anus and advanced [...] - 370 mg/dL 06/24/2017 4:47 PM EDT [facility] Microalbumin 0.4 mg/dL 06/24/2017 4:47 PM EDT [employer] [facility] Comment: Reference Range Not established Microalbumin/Crea tinine Ratio, Random Urine 2 <30 mcg/mg creat 06/24/2017 4:47 PM EDT [facility] Comment: The ADA defines abnormalities in albumin [...] 06/24/2017 8:21 AM EDT us Sandi Arias [employer]ESSION[employer] LAB URINE ORDERABLES Final Result [facility] [address], [place] [address], [place] [phone] [facility] [address], [place] [address], [place] [phone] * DIABETES EYE EXAM (06/05/2016 8:06 AM EDT) [facility] Signature Eye Exam [id number] [facility] MANUAL RESULTS 06/05/2016 8:06 AM EDT us Historical Conversion Provider HEALTH MAINTENANC E Final Result [facility] MANUAL RESULTS from Last 3 Months or Most Recently Relevant to Health Maintenance Insurance MEDICARE [facility] Care Teams Onyx Chip Terrazzo Worker Relationship Specialty Start Date End Date Mami Jacob [address] [place] [id number] PCP - General Family Medicine 11/09/24
--- OUTSIDE RECORDS SUMMARY | 2025-01-14 10:26 | XMS_ITS | Encounter Summary ---
Author Organization [facility] Address [address] [place] [address] Care Team Providers Care Tool And Die Repairer Name Role Phone Mami Jacob Primary Care Provider Encounter Details Date Type Department Care Team (Late st Contact Info) Description 06/05/2016 Abstract [facility] [address] [place] [address] Danielle Acevedo MD [address] [place] [address] Social History Tobacco Use Types Packs/Day Years [...] on filedocumented in this encounter Care Teams Tool And Die Repairer Relationship Specialty Start Date End Date CathyMami archibald [address] [place] [id number] PCP - General Family Medicine 11/09/24 documented as of this encounter
== END 2025-01-14 09:16 | disposition home or self-care (01) ==
LOC: HO.CT 09:15
PROVIDERS: PCP Nurse Practitioner Family; Visit Provider Physician Assistant Medical
DX: Z12.2 Encounter for screening for malignant neoplasm of respiratory organs (principal); Z87.891 Personal history of nicotine dependence
CPT/HCPCS: 71271; G0296

== ENCOUNTER → 2025-01-14 09:20 | Outpatient (BNV) | payer MEDICARE, MEDICAID, SELFPAY | PROVIDERS: PCP Nurse Practitioner Family; Visit Provider Radiology Diagnostic Radiology | DX: Z12.2 Encounter for screening for malignant neoplasm of respiratory organs (principal); Z87.891 Personal history of nicotine dependence; J43.9 Emphysema, unspecified; R91.8 Other nonspecific abnormal finding of lung field | CPT/HCPCS: 71271 ==